=== PATIENT | female | born 1930 | race Caucasian/White ===

== ENCOUNTER 2017-11-07 07:33 | Emergency (ER) | payer MEDICARE, OTHER ==
--- NOTE | 2017-11-07 08:35 | EDM.PDOC ---
ED HPI GENERAL MEDICAL PROBLEM - General Chief Complaint: Skin Complaint Stated Complaint: PAIN FROM SHINGLES Time Seen by Provider: 11/07/17 07:54 Source of Information: Reports: Patient History Limitations: Reports: No Limitations - History of Present Illness INITIAL COMMENTS - FREE TEXT/NARRATIVE: The patient presents with shingles. This has been an ongoing problem since August. She has been on a few things for pain and she is not sure if she was on an antiviral. It appears to her it is getting worse. She needs something for the pain. She has no fever, chills, cough, abdominal pain, nausea or vomiting. She has a rash and pain to the left mid back to left chest. Onset: Gradual Duration: Week(s): (Since August) Location: Reports: Chest, Back Quality: Reports: Burning Severity: Moderate Improves with: Reports: None Worsens with: Reports: None Associated Symptoms: Reports: No Other Symptoms Left Shoulder Pain Score (Numeric/FACES): 8 - Related Data Allergies Allergy/AdvReac Type Severity Reaction Status Date / Time shellfish derived Allergy Swelling Verified 11/07/17 07:45 Home Meds: Home Meds Aspirin [Halfprin] 81 mg PO DAILY 11/07/17 [History] Hydrocodone/Acetaminophen [Hydrocodon-Acetaminophen 5-325] 1 each PO Q6HR PRN # 20 tablet 11/07/17 [Rx] Metoprolol Succinate [Toprol XL] 12.5 mg PO DAILY 11/07/17 [History] Naproxen Sodium [Aleve] 220 mg PO DAILY 11/07/17 [History] valACYclovir [Valtrex] 1,000 mg PO TID #21 tab 11/07/17 [Rx] Past Medical History HEENT History: Reports: Impaired Vision Other HEENT History: wears corrective lenses Cardiovascular History: Reports: Hypertension [employer] History: Reports: Social & Family History - Tobacco Use Smoking Status *Q: Never Smoker Second Hand Smoke Exposure: No - Caffeine Use Caffeine Use: Reports: Coffee - Recreational Drug Use Recreational Drug Use: No ED ROS GENERAL - Review of Systems Review Of Systems: See Below Constitutional: Reports: No Symptoms HEENT: Reports: No Symptoms Respiratory: Reports: No Symptoms Cardiovascular: Reports: Chest Pain Endocrine: Reports: No Symptoms GI/Abdominal: Reports: No Symptoms : Reports: No Symptoms Musculoskeletal: Reports: Back Pain ED EXAM, SKIN/RASH Exam: See Below Exam Limited By: No Limitations General Appearance: Alert, No Apparent Distress Ears: Normal External Exam Nose: Normal Inspection Head: Atraumatic, Normocephalic Neck: Normal Inspection Respiratory/Chest: No Respiratory Distress, Lungs Clear, Normal Breath Sounds Cardiovascular: Regular Rate, Rhythm, No Edema, No Murmur GI/Abdominal: Soft, Non-Tender, No Organomegaly, No Mass Back Exam: Other (Darker collered skin to the mid left back with a few lesions and more lesions to the left chest) Neurological: Alert, Oriented, No Motor/Sensory Deficits Course - Vital Signs Last Recorded V/S: Last Vital Signs Temp 98.7 F 11/07/17 07:40 Pulse 87 11/07/17 07:40 Resp 19 11/07/17 07:40 BP 159/89 H 11/07/17 07:40 Pulse Ox 97 11/07/17 07:40 - Re-Assessments/Exams Free Text/Narrative Re-Assessment/Exam: 11/07/17 08:33 I will get her a prescription for valacyclivor, neurontin and hydrocodone. Departure - Departure Time of Disposition: 08:35 Disposition: Home, Self-Care 01 Condition: Good Clinical Impression: Shingles Qualifiers: Herpes zoster complications: without complications Qualified Code(s): B02.9 - Zoster without complications - Discharge Information *PRESCRIPTION DRUG MONITORING PROGRAM REVIEWED*: No *COPY OF PRESCRIPTION DRUG MONITORING REPORT IN PATIENT PAULETTE: No Prescriptions: Hydrocodone/Acetaminophen [Hydrocodon-Acetaminophen 5-325] 1 each PO Q6HR PRN # 20 tablet PRN Reason: Pain valACYclovir [Valtrex] 1,000 mg PO TID #21 tab Referrals: Dominic Cano MD [Primary Care Provider] - Additional Instructions: Take the valacyclivor 3 times per day. Take the neurontin 1 pill on day 1 and then 1 pill 2 times per day on day 2. Continue that dose. This may take awhile to work. You can take a hydrocodone for more pain 1 pill every 6 hours as needed for pain. Follow up with Dr Vazquez. He may need to adjust the doses of some meds. Please return if you are worse.
== END 2017-11-07 08:55 | disposition home or self-care (01) ==
LOC: JD.ED 07:33
DX: B02.9 Zoster without complications (principal); I10 Essential (primary) hypertension; Z91.013 Allergy to seafood
CPT/HCPCS: 99283

== ENCOUNTER 2018-05-27 20:29 | Emergency (ER) | payer MEDICARE, OTHER ==
--- NOTE | 2018-05-27 21:07 | EDM.PDOC ---
ED HPI GENERAL MEDICAL PROBLEM - General Chief Complaint: Lower Extremity Injury/Pain Stated Complaint: PAIN AND SWELLING IN RIGHT LEG Time Seen by Provider: 05/27/18 20:48 Source of Information: Reports: Patient, RN Notes Reviewed - History of Present Illness INITIAL COMMENTS - FREE TEXT/NARRATIVE: 88-year-old lady had sudden onset of leg pain standing still this afternoon about 6 hours ago. She states it felt like a hard crap that lasted for a while and she now continues to have pain of the leg with any type of motion or walking. There is a mild ache at rest not super bothersome. She notices now this evening that the back of her leg is swollen. She and her family are appropriately worried about blood clots. NonChest pain or difficulty breathing. No fall or injury. Left Lower Leg Pain Score (Numeric/FACES): 7 - Related Data Allergies Allergy/AdvReac Type Severity Reaction Status Date / Time shellfish derived Allergy Swelling Verified 05/27/18 20:40 Home Meds: Home Meds Metoprolol Succinate [Toprol XL] 12.5 mg PO DAILY 11/07/17 [History] Past Medical History HEENT History: Reports: Impaired Vision Other HEENT History: wears corrective lenses Cardiovascular History: Reports: Hypertension [employer] History: Reports: Social & Family History - Tobacco Use Smoking Status *Q: Never Smoker - Caffeine Use Caffeine Use: Reports: Coffee - Recreational Drug Use Recreational Drug Use: No Review of Systems - Review of Systems Review Of Systems: See Below Constitutional: Denies: Chills, Fever Mouth/Throat: Reports: No Symptoms Respiratory: Denies: Shortness of Breath Cardiovascular: Denies: Chest Pain GI/Abdominal: Denies: Abdominal Pain, Nausea, Vomiting Musculoskeletal: Reports: Leg Pain Skin: Denies: Rash, Erythema Neurological: Denies: Numbness, Tingling ED EXAM, GENERAL - Physical Exam Exam: See Below General Appearance: Alert, No Apparent Distress Throat/Mouth: Normal Inspection Head: Atraumatic. No: Facial Swelling Neck: Supple, Full Range of Motion Respiratory/Chest: No Respiratory Distress, Lungs Clear, Normal Breath Sounds, No Accessory Muscle Use Cardiovascular: Regular Rate, Rhythm Extremities: Other (There is tenderness R superior and mid calf, remainder of leg nontender there is mild swelling of the right upper and mid leg as well, no lower foot or ankle edema, no warmth or erythema of the leg, upper leg nontender ). No: Increased Warmth, Redness Course - Vital Signs Last Recorded V/S: Last Vital Signs Temp 96.8 F 05/27/18 20:38 Pulse 65 05/27/18 20:38 Resp 16 05/27/18 20:38 BP 185/91 H 05/27/18 20:38 Pulse Ox 95 05/27/18 20:38 - Orders/Labs/Meds Orders: Active Orders 24 hr Category Date Time Status VL Duplex Lwr Ext Veins Ltd Rt [US] Stat Exams 05/27/18 20:57 Taken Departure - Departure Time of Disposition: 22:44 Disposition: Home, Self-Care 01 Condition: Fair Clinical Impression: Leg pain, right - Discharge Information Referrals: Dominic Cano MD [Primary Care Provider] - Forms: ED Department Discharge Additional Instructions: Rest and elevate leg is much as possible, Tylenol every 6-8 hours if needed for severe discomfort, follow-up clinic if not much better within 3-5 days as expected, return to ED as needed if symptoms worsening in any way. - My Orders Last 24 Hours: My Active Orders 05/27/18 20:57 VL Duplex Lwr Ext Veins Ltd Rt [US] Stat - Assessment/Plan Last 24 Hours: My Active Orders 05/27/18 20:57 VL Duplex Lwr Ext Veins Ltd Rt [US] Stat
--- NOTE | 2018-05-28 08:20 | US ---
Right lower extremity deep venous ultrasound: Duplex and color flow imaging was obtained of the right common femoral, proximal greater saphenous, superficial femoral, popliteal, posterior tibial and peroneal veins. Left common femoral vein was also evaluated. Comparison: No prior venous exam. Normal phasic flow, augmentation and compression are seen. Small hypoechoic area js identified described as area of pain within the upper right calf measuring 1.1 x 1.7 x 0.4 cm. This most likely represents either a small lymph node or small hematoma. Impression: 1. Small abnormality as described above within the superficial soft tissues of the right calf. 2. No evidence of venous thrombosis within the right lower extremity or left common femoral vein. Diagnostic code #2 I agree with preliminary report from [facility], finalized on 05/27/18, 11:34 PM Central Time
== END 2018-05-27 22:55 | disposition home or self-care (01) ==
LOC: JD.ED 20:29
DX: M79.604 Pain in right leg (principal); I10 Essential (primary) hypertension; Z91.013 Allergy to seafood; Z79.899 Other long term (current) drug therapy
CPT/HCPCS: 93971-26-RT; 93971-RT; 99283-25

== ENCOUNTER 2018-07-11 07:50 | Inpatient (IN) | payer MEDICARE, OTHER ==
[2018-07-11] MEDS ORDERED: Albuterol/Ipratropium 3.0-0.5 MG/3 ML Neb Soln NEB ONE (08:41)
--- NOTE | 2018-07-11 08:58 | EDM.PDOC ---
<Michael Avila - Last Filed: 07/11/18 08:51> ED HPI GENERAL MEDICAL PROBLEM - General Chief Complaint: Respiratory Problem Stated Complaint: COUGH Time Seen by Provider: 07/11/18 08:06 Source of Information: Reports: Patient History Limitations: Reports: No Limitations - History of Present Illness INITIAL COMMENTS - FREE TEXT/NARRATIVE: Precious Deleon is a 88 year old female who presents to the ED for a cough. She states that she has been sick for awhile but developed a productive cough of white phlegm four days ago. The cough kept her up all night last night. She states nothing makes the cough worse but warm water makes it better. She has also felt feverish at home but has not actually taken her temp at home. She also states that she has been having chill, but she has been having these chills since last August when she was diagnosed with Shingles. She sleeps in a chair at home so she isn't sure if laying makes her cough worse. She does admit to a decrease in her appetite but her fluid levels are good. Her is on oxygen at home because he has been diagnosed with pneumonia a few days ago. She is up to date on her Influenza and Pneumonia vaccines. She does not have any history of cardiac or respiratory disease. She has never smoked. Left Chest Pain Score (Numeric/FACES): 6 - Related Data Allergies Allergy/AdvReac Type Severity Reaction Status Date / Time shellfish derived Allergy Swelling Verified 07/11/18 08:19 Home Meds: Home Meds Metoprolol Succinate [Toprol XL] 25 mg PO DAILY 11/07/17 [History] Past Medical History HEENT History: Reports: Impaired Vision Other HEENT History: wears corrective lenses Cardiovascular History: Reports: Hypertension [employer] History: Reports: Social & Family History - Tobacco Use Smoking Status *Q: Never Smoker - Caffeine Use Caffeine Use: Reports: Coffee - Recreational Drug Use Recreational Drug Use: No ED ROS GENERAL - Review of Systems Review Of Systems: ROS reveals no pertinent complaints other than HPI. ED EXAM, GENERAL - Physical Exam Exam Limited By: No Limitations General Appearance: Alert, WD/WN, No Apparent Distress Eye Exam: Bilateral Eye: Normal Inspection Ears: Normal External Exam, Normal Canal, Hearing Grossly Normal, Normal TMs Nose: Normal Inspection, Normal Mucosa, No Blood Throat/Mouth: Normal Inspection, Normal Lips, Normal Teeth, Normal Gums, Normal Oropharynx, Normal Voice, No Airway Compromise Head: Atraumatic, Normocephalic Neck: Normal Inspection, Supple, Non-Tender, Full Range of Motion Respiratory/Chest: No Respiratory Distress, No Accessory Muscle Use, Crackles, Wheezing Cardiovascular: Normal Peripheral Pulses, Regular Rate, Rhythm, No Edema, No Gallop, No JVD, No Murmur, No Rub Peripheral Pulses: 2+: Radial (L), Radial (R) GI/Abdominal: Normal Bowel Sounds, Soft, Non-Tender, No Organomegaly, No Distention, No Abnormal Bruit, No Mass Neurological: Alert, Oriented, Normal Cognition, Normal Gait, No Motor/Sensory Deficits Psychiatric: Normal Affect, Normal Mood Skin Exam: Warm, Dry, Intact, Normal Color, No Rash Course - Vital Signs Last Recorded V/S: Last Vital Signs Temp 99.0 F 07/11/18 08:11 Pulse 94 07/11/18 08:11 Resp 20 07/11/18 08:11 BP 140/77 07/11/18 08:11 Pulse Ox 94 L 07/11/18 08:41 - Orders/Labs/Meds Orders: Active Orders 24 hr Category Date Time Status Cardiac Monitoring [RC] . DIRECTED Care 07/11/18 08:41 Active Oxygen Therapy [RC] ASDIRECTED Care 07/11/18 08:26 Active Peripheral IV Care [RC] . DIRECTED Care 07/11/18 09:47 Ordered RT Aerosol Therapy [RC] ASDIRECTED Care 07/11/18 08:41 Active Chest 2V [CR] Stat Exams 07/11/18 08:41 Taken CULTURE BLOOD [BC] Stat Lab 07/11/18 09:40 Ordered CULTURE BLOOD [BC] Stat Lab 07/11/18 09:40 Ordered INFLUENZA A+B AG SCREEN [RM] Stat Lab 07/11/18 09:29 Received LACTIC ACID [CHEM] Stat Lab 07/11/18 09:40 Ordered Sodium Chloride 0.9% [Saline Flush] Med 07/11/18 09:47 Ordered 10 ml FLUSH ASDIRECTED PRN cefTRIAXone [Rocephin] 2 gm Med 07/11/18 09:40 Active Sodium Chloride 0.9% [Normal Saline] 100 ml IV ONETIME Blood Culture x2 Reflex Set [OM.PC] Stat Oth 07/11/18 09:39 Ordered Peripheral IV Insertion Adult [OM.PC] Routine Oth 07/11/18 09:47 Ordered Medication Orders Ceftriaxone Sodium 2 gm/ (Sodium Chloride) 100 mls @ 200 mls/hr IV ONETIME ONE Stop: 07/11/18 10:09 Sodium Chloride (Saline Flush) 10 ml FLUSH ASDIRECTED PRN PRN Reason: Keep Vein Open Labs: Laboratory Tests 07/11/18 07/11/18 Range/Units 08:55 08:55 WBC 8.08 (3.98-10.04) K/mm3 RBC 4.21 (3.98-5.22) M/mm3 Hgb 13.5 (11.2-15.7) gm/L Hct 40.1 (34.1-44.9) % MCV 95.2 H (79.4-94.8) fl MCH 32.1 (25.6-32.2) pg MCHC 33.7 (32.2-35.5) g/dl RDW Std Deviation 41.7 (36.4-46.3) fL Plt Count 174 L (182-369) K/mm3 MPV 9.0 L (9.4-12.3) fl Neut % (Auto) 86.9 H (34.0-71.1) % Lymph % (Auto) 4.0 L (19.3-51.7) % [place] % (Auto) 8.8 (4.7-12.5) % Eos % (Auto) 0 L (0.7-5.8) Baso % (Auto) 0.1 (0.1-1.2) % Neut # (Auto) 7.02 H (1.56-6.13) K/mm3 Lymph # (Auto) 0.32 L (1.18-3.74) K/mm3 [place] # (Auto) 0.71 H (0.24-0.36) K/mm3 Eos # (Auto) 0.00 L (0.04-0.36) K/mm3 Baso # (Auto) 0.01 (0.01-0.08) K/mm3 Manual Slide Review Abnormal smear Sodium 136 (136-145) mEq/L Potassium 3.3 L (3.5-5.1) mEq/L Chloride 98 (98-107) mEq/L Carbon Dioxide 30 (21-32) mEq/L Anion Gap 11.3 (5-15) BUN 16 (7-18) mg/dL Creatinine 0.9 (0.55-1.02) mg/dL Est Cr Clr Drug Dosing 36.43 mL/min Estimated GFR (MDRD) 59 (>60) mL/min BUN/Creatinine Ratio 17.8 (14-18) Glucose 171 H (83-115) mg/dL Calcium 8.8 (8.5-10.1) mg/dL Total Bilirubin 1.4 H (0.2-1.0) mg/dL AST 48 H (15-37) U/L ALT 37 (14-59) U/L Alkaline Phosphatase 88 (46-116) U/L Total Protein 6.5 (6.4-8.2) g/dl Albumin 2.9 L (3.4-5.0) g/dl Globulin 3.6 gm/dL Albumin/Globulin Ratio 0.8 L (1-2) Meds: Medications Generic Name Dose Route Start Last Admin Trade Name Freq PRN Reason Stop Dose Admin Ceftriaxone Sodium 2 gm/ 100 mls @ 200 mls/hr 07/11/18 09:40 Sodium Chloride IV 07/11/18 10:09 ONETIME ONE Sodium Chloride 10 ml 07/11/18 09:47 Saline Flush FLUSH ASDIRECTED PRN Keep Vein Open Discontinued Medications Generic Name Dose Route Start Last Admin Trade Name Freq PRN Reason Stop Dose Admin Albuterol/Ipratropium 3 ml 07/11/18 08:41 07/11/18 08:59 Duoneb 3.0-0.5 Mg/3 Ml NEB 07/11/18 08:42 3 ml ONETIME ONE Administration Departure - Departure Disposition: Admitted As Inpatient 67 Clinical Impression: Hypoxia Pneumonia Qualifiers: Pneumonia type: due to unspecified organism Laterality: right Lung location: upper lobe of lung Qualified Code(s): J18.1 - Lobar pneumonia, unspecified organism - Discharge Information Referrals: Dominic Cano MD [Primary Care Provider] - Forms: ED Department Discharge - My Orders Last 24 Hours: My Active Orders 07/11/18 08:26 Oxygen Therapy [RC] ASDIRECTED 07/11/18 08:41 Cardiac Monitoring [RC] . DIRECTED RT Aerosol Therapy [RC] ASDIRECTED Chest 2V [CR] Stat 07/11/18 09:29 INFLUENZA A+B AG SCREEN [RM] Stat 07/11/18 09:39 Blood Culture x2 Reflex Set [OM.PC] Stat 07/11/18 09:40 CULTURE BLOOD [BC] Stat CULTURE BLOOD [BC] Stat LACTIC ACID [CHEM] Stat cefTRIAXone [Rocephin] 2 gm Sodium Chloride 0.9% [Normal Saline] 100 ml IV ONETIME 07/11/18 09:47 Peripheral IV Care [RC] . DIRECTED Sodium Chloride 0.9% [Saline Flush] 10 ml FLUSH ASDIRECTED PRN Peripheral IV Insertion Adult [OM.PC] Routine - Assessment/Plan Last 24 Hours: My Active Orders 07/11/18 08:26 Oxygen Therapy [RC] ASDIRECTED 07/11/18 08:41 Cardiac Monitoring [RC] . DIRECTED RT Aerosol Therapy [RC] ASDIRECTED Chest 2V [CR] Stat 07/11/18 09:29 INFLUENZA A+B AG SCREEN [RM] Stat 07/11/18 09:39 Blood Culture x2 Reflex Set [OM.PC] Stat 07/11/18 09:40 CULTURE BLOOD [BC] Stat CULTURE BLOOD [BC] Stat LACTIC ACID [CHEM] Stat cefTRIAXone [Rocephin] 2 gm Sodium Chloride 0.9% [Normal Saline] 100 ml IV ONETIME 07/11/18 09:47 Peripheral IV Care [RC] . DIRECTED Sodium Chloride 0.9% [Saline Flush] 10 ml FLUSH ASDIRECTED PRN Peripheral IV Insertion Adult [OM.PC] Routine <Cesar Bejarano A - Last Filed: 07/11/18 10:01> ED HPI GENERAL MEDICAL PROBLEM - History of Present Illness Onset: Gradual Duration: Day(s): (3) Severity: Moderate Improves with: Reports: None Worsens with: Reports: None Associated Symptoms: Reports: Cough, cough w sputum. Denies: Chest Pain, Fever/ Chills, Headaches, Nausea/Vomiting, Shortness of Breath ED ROS GENERAL - Review of Systems Review Of Systems: See Below ED EXAM, GENERAL - Physical Exam Exam: See Below Course - Re-Assessments/Exams Free Text/Narrative Re-Assessment/Exam: 07/11/18 09:48 I examined the patient myself and I agree with Michael's assessment and plan. The patient was hypoxic when she came in. She was put on oxygen and given a breathing treatment. Her CXR shows a pneumonia in the right upper and right lower lobes. Here CBC was normal. Her K was a little low at 3.3. Her glucose is 171. Her total bili was elevated at 1.4. Her AST was slightly elevated at 48. I have ordered an IV saline lock, rocephin 2 grams IV, blood cultures and lactic acid. 07/11/18 09:56 I feel she needs to be admitted. I called Dr Emery and he agreed to the admission. Departure - Departure Time of Disposition: 10:00 Condition: Fair
[2018-07-11] MEDS ORDERED: cefTRIAXone 2 GM in Sodium Chloride 0.9% 100 ML IV ONE (09:40)
[2018-07-11] MEDS ORDERED: Sodium Chloride 0.9% 10 ML Syringe FLUSH PRN (09:47)
--- NOTE | 2018-07-11 09:51 | CR ---
Chest: Two views of the chest were obtained. Comparison: No prior chest x-ray is available. Increased density is noted within the right upper and right lower lung. Left lung shows slight increased density within the left base most likely due to scarring. Heart is enlarged. Tortuous thoracic aorta is seen. Bony structures show mild scoliosis within the spine. Impression: 1. Areas of increased density within the right upper and right lower lung most likely representing pneumonia. Please correlate that patient has infectious symptoms. 2. Cardiomegaly and other incidental findings. Diagnostic code #3
[2018-07-11] MEDS ORDERED: Albuterol 0.083% 2.5 MG/3 ML Neb Soln NEB PRN (13:18)
[2018-07-11] MEDS ORDERED: Potassium Chloride 20 MEQ Tab.ER PO ONE ×3 (13:29→15:15)
--- NOTE | 2018-07-11 13:37 | PCM.HP ---
H&P History of Present Illness - General Date of Service: 07/11/18 Admit Problem/Dx: Admission Diagnosis/Problem Admission Diagnosis/Problem Pneumonia Source of Information: Patient, Family - History of Present Illness Initial Comments - Free Text/Narative: 88-year-old female with three-day history of cough present to the emergency room with worsening symptoms overnight. She states that last night she had a productive cough of clear sputum that worsened. She states the cough likely started Monday, but it was not severe until last night. She denies any shortness of breath, chest pain, orthopnea, PND, or dyspnea on exertion. She does have some slight dizziness. Patient states that nothing makes her cough worse. She does complain of some chills. In the emergency room her initial oxygenation was 84%. Chest x-ray was performed which showed a right upper and lower lobe pneumonia. It was determined patient needed hospitalization for her pneumonia and hypoxemia. She had blood cultures, Rocephin 2 g, and lab work done. White count was normal, lactic acid was normal. Patient also developed shingles last August. 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 She has tried multiple treatments including lidocaine patches without benefit. 2 weeks ago she was seen by her primary care provider and her heart rate was 110. She states she has been on metoprolol for years 12.5 mg twice a day for racing heart. He increased the dose to 25 mg twice a day and she had significant improvement. She is currently wearing a Holter monitor that was put on yesterday morning and is due to be removed tomorrow morning. Left Chest Pain Score (Numeric/FACES): 6 - Related Data Allergies/Adverse Reactions: Allergies Allergy/AdvReac Type Severity Reaction Status Date / Time shellfish derived Allergy Swelling Verified 07/11/18 08:19 Home Medications: Home Meds Metoprolol Succinate [Toprol XL] 25 mg PO BID 11/07/17 [History] Past Medical History HEENT History: Reports: Impaired Vision, Other (See Below) Other HEENT History: wears corrective lenses; tooth pulled Cardiovascular History: Reports: Other (See Below) Other Cardiovascular History: high heart rate LAP WINDER History: Reports: - Infectious Disease History Infectious Disease History: Reports: Shingles - Past Surgical History HEENT Surgical History: Reports: Tonsillectomy Cardiovascular Surgical History: Reports: None Social & Family History - Family History Family Medical History: Noncontributory - Tobacco Use Smoking Status *Q: Never Smoker - Caffeine Use Caffeine Use: Reports: Coffee - Recreational Drug Use Recreational Drug Use: No H&P Review of Systems - Review of Systems: Review Of Systems: See Below General: Reports: Chills. Denies: Fever, Diaphoresis HEENT: Reports: No Symptoms. Denies: Headaches, Visual Changes Pulmonary: Reports: Cough, Sputum. Denies: Shortness of Breath, Wheezing, Pleuritic Chest Pain, Hemoptysis Cardiovascular: Reports: Lightheadedness. Denies: Chest Pain, Palpitations, Dyspnea on Exertion, Syncope Gastrointestinal: Reports: No Symptoms, Abdominal Pain, Anorexia, Constipation, Diarrhea Genitourinary: Reports: Incontinence. Denies: Dysuria, Frequency Musculoskeletal: Reports: No Symptoms. Denies: Neck Pain, Back Pain Skin: Reports: Other Psychiatric: Reports: No Symptoms. Denies: Confusion, Depression Neurological: Reports: Other. Denies: Dizziness, Headache Hematologic/Lymphatic: Reports: No Symptoms Immunologic: Reports: No Symptoms Exam - Exam Exam: See Below - Vital Signs Vital Signs: Last Vital Signs Temp 98.1 F 07/11/18 11:46 Pulse 75 07/11/18 11:46 Resp 20 07/11/18 11:46 BP 148/67 H 07/11/18 11:46 Pulse Ox 95 07/11/18 11:46 Weight: 118 lb 11.2 oz - Exam HEENT: Conjunctiva Clear, Mucosa Moist & Vick[place], Posterior Pharynx Clear Lungs: Normal Respiratory Effort, Rhonchi (Right upper lower lobe), Wheezing ( Bilateral apices) Cardiovascular: Regular Rate, Regular Rhythm GI/Abdominal Exam: Normal Bowel Sounds, Soft, Non-Tender, No Distention, No Abnormal Bruit Back Exam: Normal Inspection, Full Range of Motion Extremities: Normal Inspection, Normal Range of Motion, Non-Tender, No Pedal Edema, Normal Capillary Refill Skin: Warm, Dry, Intact Neuro Extensive - Mental Status: Alert, Oriented x3, Normal Mood/Affect Neuro Extensive - Motor, Sensory, Reflexes: CN II-XII Intact Psychiatric: Alert, Normal Affect, Normal Mood - Patient Data Lab Results Last 24 hrs: Laboratory Results - last 24 hr 07/11/18 07/11/1807/11/19 Range/Units 08:55 08:55 10:05 WBC 8.08 (3.98-10.04) K/mm3 RBC 4.21 (3.98-5.22) M/mm3 Hgb 13.5 (11.2-15.7) gm/L Hct 40.1 (34.1-44.9) % MCV 95.2 H (79.4-94.8) fl MCH 32.1 (25.6-32.2) pg MCHC 33.7 (32.2-35.5) g/dl RDW Std Deviation 41.7 (36.4-46.3) fL Plt Count 174 L (182-369) K/mm3 MPV 9.0 L (9.4-12.3) fl Neut % (Auto) 86.9 H (34.0-71.1) % Lymph % (Auto) 4.0 L (19.3-51.7) % Power % (Auto) 8.8 (4.7-12.5) % Eos % (Auto) 0 L (0.7-5.8) Baso % (Auto) 0.1 (0.1-1.2) % Neut # (Auto) 7.02 H (1.56-6.13) K/mm3 Lymph # (Auto) 0.32 L (1.18-3.74) K/mm3 Power # (Auto) 0.71 H (0.24-0.36) K/mm3 Eos # (Auto) 0.00 L (0.04-0.36) K/mm3 Baso # (Auto) 0.01 (0.01-0.08) K/mm3 Manual Slide Review Abnormal smear Sodium 136 (136-145) mEq/L Potassium 3.3 L (3.5-5.1) mEq/L Chloride 98 (98-107) mEq/L Carbon Dioxide 30 (21-32) mEq/L Anion Gap 11.3 (5-15) BUN 16 (7-18) mg/dL Creatinine 0.9 (0.55-1.02) mg/dL Est Cr Clr Drug Dosing 36.43 mL/min Estimated GFR (MDRD) 59 (>60) mL/min BUN/Creatinine Ratio 17.8 (14-18) Glucose 171 H (83-115) mg/dL Lactic Acid 1.2 (0.4-2.0) mmol/L Calcium 8.8 (8.5-10.1) mg/dL Total Bilirubin 1.4 H (0.2-1.0) mg/dL AST 48 H (15-37) U/L ALT 37 (14-59) U/L Alkaline Phosphatase 88 (46-116) U/L Total Protein 6.5 (6.4-8.2) g/dl Albumin 2.9 L (3.4-5.0) g/dl Globulin 3.6 gm/dL Albumin/Globulin Ratio 0.8 L (1-2) Result Diagrams: 07/11/18 08:55 07/11/18 08:55 Petr Results Last 24 hrs: Microbiology 07/11/18 09:29 Influenza Type A Antigen Screen - Final Nasopharyngeal Swab NEGATIVE INFLUENZA A VIRUS AG Influenza Type B Antigen Screen - Final NEGATIVE INFLUENZA B VIRUS AG - Problem List (1) Postherpetic neuralgia SNOMED Code(s): 2080299 ICD Code: B02.29 - OTHER POSTHERPETIC NERVOUS SYSTEM INVOLVEMENT Status: Acute Current Visit: Yes (2) Hypoxia SNOMED Code(s): 944339234 ICD Code: R09.02 - HYPOXEMIA Status: Acute Current Visit: Yes (3) Pneumonia SNOMED Code(s): 899768713 ICD Code: J18.9 - PNEUMONIA, UNSPECIFIED ORGANISM Status: Acute Current Visit: Yes Qualifiers: Pneumonia type: due to unspecified organism Laterality: right Lung location: upper lobe of lung Qualified Code(s): J18.1 - Lobar pneumonia, unspecified organism (4) Hypokalemia SNOMED Code(s): 59709137 ICD Code: E87.6 - HYPOKALEMIA Status: Acute Current Visit: Yes Problem List Initiated/Reviewed/Updated: Yes Orders Last 24hrs: Active Orders 24 hr Category Date Time Status Patient Status [ADT] Routine ADT 07/11/18 11:12 Active Antiembolic Devices [RC] PER UNIT ROUTINE Care 07/11/18 13:20 Active Bedrest Bathroom Privileges [RC] ASDIRECTED Care 07/11/18 13:18 Active Cardiac Monitoring [RC] . DIRECTED Care 07/11/18 08:41 Active Oxygen Therapy [RC] ASDIRECTED Care 07/11/18 08:26 Active Oxygen Therapy [RC] PRN Care 07/11/18 13:18 Active Peripheral IV Care [RC] . DIRECTED Care 07/11/18 09:47 Active RT Aerosol Therapy [RC] ASDIRECTED Care 07/11/18 08:41 Active RT Aerosol Therapy [RC] ASDIRECTED Care 07/11/18 13:20 Active Up With Assistance [RC] ASDIRECTED Care 07/11/18 13:18 Active VTE/DVT Education [RC] PER UNIT ROUTINE Care 07/11/18 13:18 Active Vital Signs [RC] Q4H Care 07/11/18 13:18 Active Respiratory Care Assess and Treatment [CONS] Routine Cons 07/11/18 13:18 Active Regular Diet [DIET] Diet 07/11/18 Dinner Active C-REACTIVE PROTEIN [CHEM] AM Lab 07/12/18 05:11 Ordered CBC WITH AUTO DIFF [HEME] AM Lab 07/12/18 05:11 Ordered COMPREHENSIVE METABOLIC PN,CMP [CHEM] AM Lab 07/12/18 05:11 Ordered CULTURE BLOOD [BC] Stat Lab 07/11/18 09:55 Received CULTURE BLOOD [BC] Stat Lab 07/11/18 10:05 Received CULTURE SPUTUM + SMEAR [RM] Stat Lab 07/11/18 13:18 Ordered MAGNESIUM [CHEM] AM Lab 07/12/18 05:11 Ordered PHOSPHORUS [CHEM] AM Lab 07/12/18 05:11 Ordered Acetaminophen [Tylenol] Med 07/11/18 13:18 Ordered 650 mg PO Q4H PRN Albuterol [Proventil Neb Soln] Med 07/11/18 13:18 Ordered 2.5 mg NEB Q2H PRN Albuterol/Ipratropium [DuoNeb 3.0-0.5 MG/3 ML] Med 07/11/18 13:18 Ordered 3 ml NEB Q4H PRN Azithromycin [Zithromax] Med 07/12/18 09:00 Ordered 250 mg PO DAILY Azithromycin [Zithromax] 500 mg Med 07/11/18 13:18 Ordered Sodium Chloride 0.9% [Normal Saline] 250 ml IV ONETIME Metoprolol Succinate [Toprol XL] Med 07/11/18 21:00 Ordered 25 mg PO BID Potassium Chloride [Klor-Con M20] Med 07/11/18 13:29 Once 20 meq PO ONETIME ONE Sodium Chloride 0.9% [Saline Flush] Med 07/11/18 09:47 Active 10 ml FLUSH ASDIRECTED PRN Blood Culture x2 Reflex Set [OM.PC] Stat Oth 07/11/18 09:39 Ordered Peripheral IV Insertion Adult [OM.PC] Routine Oth 07/11/18 09:47 Ordered Sequential Compression Device [OM.PC] Per Unit Routine Oth 07/11/18 13:19 Ordered Resuscitation Status Routine Resus Stat 07/11/18 13:18 Ordered Medication Orders Acetaminophen (Tylenol) 650 mg PO Q4H PRN PRN Reason: Pain (Mild 1-3)/fever Albuterol (Proventil Neb Soln) 2.5 mg NEB Q2H PRN PRN Reason: Shortness Of Breath/wheezing Albuterol/Ipratropium (Duoneb 3.0-0.5 Mg/3 Ml) 3 ml NEB Q4H PRN PRN Reason: Shortness Of Breath/wheezing Azithromycin (Zithromax) 250 mg PO DAILY HERMILO Stop: 07/15/18 09:01 Azithromycin 500 mg/ Sodium (Chloride) 250 mls @ 250 mls/hr IV ONETIME ONE Stop: 07/11/18 14:17 Metoprolol Succinate (Toprol Xl) 25 mg PO BID HERMILO Sodium Chloride (Saline Flush) 10 ml FLUSH ASDIRECTED PRN PRN Reason: Keep Vein Open Last Admin: 07/11/18 10:12 Dose: 10 ml Assessment/Plan Comment:: Right upper and lower lobe pneumonia * Admit to [facility] on telemetry * Patient given Rocephin 2 g IV in the emergency room. * Start azithromycin for coverage of community-acquired pneumonia * RT consult. * DuoNeb every 4 hours when necessary and albuterol nebulizer every 2 hours when necessary shortness of breath, cough, wheezing * Blood cultures done in the ER * Sputum cultures ordered * Lactic acid and white count normal * Repeat CBC and CMP in the morning Hypoxemia * Secondary to pneumonia * FiO2 to maintain oxygen above 90% Hypokalemia * Potassium chloride 20 mEq by mouth 1 * Recheck CMP in the morning History of tachycardia * Admit to telemetry * Continue metoprolol tartrate 25 mg twice a day * Finish her Holter monitor today. Postherpetic neuralgia * Monitor and treat symptomatically as needed CBC, CMP, lactic acid, mag, C-reactive protein, phos in a.m. Length of stay likely 3 days CODE STATUS: DNR/DNI. Discussed with patient and daughter
[2018-07-11] MEDS ORDERED: Azithromycin 500 MG in Sodium Chloride 0.9% 250 ML IV ONE (14:00)
[2018-07-11] MEDS: Albuterol/Ipratropium 3.0-0.5 MG/3 ML Neb Soln NEB PRN (20:22)
[2018-07-11] MEDS: Metoprolol Succinate 25 MG Tab.ER PO SCH (20:35)
[2018-07-11] MEDS: Acetaminophen 325 MG Tab PO PRN (20:37)
[2018-07-11] MEDS: guaiFENesin 600 MG Tab.ER PO SCH (22:43)
[2018-07-12] MEDS: cefTRIAXone 1 GM in Sodium Chloride 0.9% 100 ML IV SCH (09:03)
[2018-07-12] MEDS: guaiFENesin 600 MG Tab.ER PO SCH ×2 (09:03→20:11)
[2018-07-12] MEDS: Metoprolol Succinate 25 MG Tab.ER PO SCH ×2 (09:04→20:11)
[2018-07-12] MEDS: Acetaminophen 325 MG Tab PO PRN ×2 (09:04→20:12)
[2018-07-12] MEDS ORDERED: cefTRIAXone 1 GM Vial IVPUSH SCH (10:00)
[2018-07-12] MEDS: Azithromycin 250 MG Tab PO SCH (13:45)
--- NOTE | 2018-07-12 14:11 | PCM.PN ---
- General Info Date of Service: 07/12/18 Admission Dx/Problem (Free Text): Admission Diagnosis/Problem Admission Diagnosis/Problem Pneumonia Subjective Update: Patient had uneventful night. She continues on 2 L of O2 via nasal cannula. She was afebrile. She has no pain and no specific complaints other than coughing. Functional Status: Reports: Pain Controlled - Review of Systems General: Reports: No Symptoms HEENT: Reports: No Symptoms Pulmonary: Reports: Cough. Denies: Shortness of Breath, Hemoptysis Cardiovascular: Reports: No Symptoms. Denies: Chest Pain, Palpitations Gastrointestinal: Reports: No Symptoms. Denies: Abdominal Pain, Constipation - Patient Data Vitals - Most Recent: Last Vital Signs Temp 97.9 F 07/12/18 07:36 Pulse 88 07/12/18 09:04 Resp 22 H 07/12/18 07:36 BP 108/77 07/12/18 09:04 Pulse Ox 94 L 07/12/18 09:04 Weight - Most Recent: 118 lb 5 oz I&O - Last 24 Hours: Intake & Output 07/11/18 07/12/18 07/12/18 22:59 06:59 14:59 Intake Total 1300 800 420 Output Total 250 700 Balance 1050 100 420 Lab Results Last 24 Hours: Laboratory Results - last 24 hr 07/12/18 07/12/18 07/12/18 Range/Units 05:41 05:41 05:41 WBC 6.30 (3.98-10.04) K/mm3 RBC 3.92 L (3.98-5.22) M/mm3 Hgb 12.4 (11.2-15.7) gm/L Hct 37.7 (34.1-44.9) % MCV 96.2 H (79.4-94.8) fl MCH 31.6 (25.6-32.2) pg MCHC 32.9 (32.2-35.5) g/dl RDW Std Deviation 42.1 (36.4-46.3) fL Plt Count 184 (182-369) K/mm3 MPV 9.2 L (9.4-12.3) fl Neut % (Auto) 71.6 H (34.0-71.1) % Lymph % (Auto) 13.5 L (19.3-51.7) % [place] % (Auto) 13.3 H (4.7-12.5) % Eos % (Auto) 1.0 (0.7-5.8) Baso % (Auto) 0.3 (0.1-1.2) % Neut # (Auto) 4.51 (1.56-6.13) K/mm3 Lymph # (Auto) 0.85 L (1.18-3.74) K/mm3 [place] # (Auto) 0.84 H (0.24-0.36) K/mm3 Eos # (Auto) 0.06 (0.04-0.36) K/mm3 Baso # (Auto) 0.02 (0.01-0.08) K/mm3 Sodium 139 (136-145) mEq/L Potassium 3.8 (3.5-5.1) mEq/L Chloride 102 (98-107) mEq/L Carbon Dioxide 32 (21-32) mEq/L Anion Gap 8.8 (5-15) BUN 13 (7-18) mg/dL Creatinine 0.7 (0.55-1.02) mg/dL Est Cr Clr Drug Dosing 46.84 mL/min Estimated GFR (MDRD) > 60 (>60) mL/min BUN/Creatinine Ratio 18.6 H (14-18) Glucose 92 (83-115) mg/dL Lactic Acid 0.8 (0.4-2.0) mmol/L Calcium 8.6 (8.5-10.1) mg/dL Phosphorus 3.7 (2.6-4.7) mg/dL Magnesium 2.0 (1.8-2.4) mg/dl Total Bilirubin 0.9 (0.2-1.0) mg/dL AST 46 H (15-37) U/L ALT 36 (14-59) U/L Alkaline Phosphatase 87 (46-116) U/L C-Reactive Protein 17.4 H* (<1.0) mg/dL Total Protein 6.1 L (6.4-8.2) g/dl Albumin 2.5 L (3.4-5.0) g/dl Globulin 3.6 gm/dL Albumin/Globulin Ratio 0.7 L (1-2) Petr Results Last 24 Hours: Microbiology 07/11/18 15:46 Gram Stain - Final Sputum - Expectorated Sputum Culture - Preliminary 07/11/18 09:55 Aerobic Blood Culture - Preliminary Blood - Venous - Lab Draw NO GROWTH AFTER 1 DAY Anaerobic Blood Culture - Preliminary NO GROWTH AFTER 1 DAY 07/11/18 10:05 Aerobic Blood Culture - Preliminary Blood - Venous NO GROWTH AFTER 1 DAY Anaerobic Blood Culture - Preliminary NO GROWTH AFTER 1 DAY 07/11/18 09:29 Influenza Type A Antigen Screen - Final Nasopharyngeal Swab NEGATIVE INFLUENZA A VIRUS AG Influenza Type B Antigen Screen - Final NEGATIVE INFLUENZA B VIRUS AG Med Orders - Current: Current Medications Acetaminophen (Tylenol) 650 mg PO Q4H PRN PRN Reason: Pain (Mild 1-3)/fever Last Admin: 07/12/18 09:04 Dose: 650 mg Albuterol (Proventil Neb Soln) 2.5 mg NEB Q2H PRN PRN Reason: Shortness Of Breath/wheezing Albuterol/Ipratropium (Duoneb 3.0-0.5 Mg/3 Ml) 3 ml NEB Q4H PRN PRN Reason: Shortness Of Breath/wheezing Last Admin: 07/11/18 20:22 Dose: 3 ml Azithromycin (Zithromax) 250 mg PO DAILY@1400 [facility] Stop: 07/15/18 14:01 Last Admin: 07/12/18 13:45 Dose: 250 mg Guaifenesin (Mucinex) 600 mg PO BID [facility] Last Admin: 07/12/18 09:03 Dose: 600 mg Ceftriaxone Sodium 1 gm/ (Sodium Chloride) 100 mls @ 200 mls/hr IV Q24H [facility] Last Admin: 07/12/18 09:03 Dose: 200 mls/hr Metoprolol Succinate (Toprol Xl) 25 mg PO BID [facility] Last Admin: 07/12/18 09:04 Dose: 25 mg Sodium Chloride (Saline Flush) 10 ml FLUSH ASDIRECTED PRN PRN Reason: Keep Vein Open Last Admin: 07/11/18 10:12 Dose: 10 ml Discontinued Medications Albuterol/Ipratropium (Duoneb 3.0-0.5 Mg/3 Ml) 3 ml NEB ONETIME ONE Stop: 07/11/18 08:42 Last Admin: 07/11/18 08:59 Dose: 3 ml Ceftriaxone Sodium (Rocephin) 1 gm IVPUSH Q24H [facility] Ceftriaxone Sodium 2 gm/ (Sodium Chloride) 100 mls @ 200 mls/hr IV ONETIME ONE Stop: 07/11/18 10:09 Last Admin: 07/11/18 10:10 Dose: 200 mls/hr Azithromycin 500 mg/ Sodium (Chloride) 250 mls @ 250 mls/hr IV ONETIME ONE Stop: 07/11/18 14:59 Last Admin: 07/11/18 14:15 Dose: 250 mls/hr Potassium Chloride (Klor-Con M20) 20 meq PO ONETIME ONE Stop: 07/11/18 15:16 Last Admin: 07/11/18 15:27 Dose: 20 meq Potassium Chloride (Klor-Con M20) 20 meq PO ONETIME ONE Stop: 07/11/18 13:30 Last Admin: 07/11/18 16:25 Dose: Not Given Potassium Chloride (Klor-Con M20) 20 meq PO ONETIME ONE Stop: 07/11/18 15:12 Last Admin: 07/11/18 16:25 Dose: Not Given - Exam Quality Assessment: Supplemental Oxygen General: Alert, Oriented HEENT: Pupils Equal, Pupils Reactive Neck: Supple Lungs: Normal Respiratory Effort, Rhonchi Cardiovascular: Regular Rate, Regular Rhythm GI/Abdominal Exam: Normal Bowel Sounds, Soft, Non-Tender Extremities: Normal Inspection, Normal Range of Motion, No Pedal Edema Skin: Warm, Dry Psy/Mental Status: Alert, Normal Affect - Problem List & Annotations (1) Pneumonia SNOMED Code(s): 403709722 Code(s): J18.9 - PNEUMONIA, UNSPECIFIED ORGANISM Status: Acute Current Visit: Yes Qualifiers: Pneumonia type: due to unspecified organism Laterality: right Lung location: upper lobe of lung Qualified Code(s): J18.1 - Lobar pneumonia, unspecified organism (2) Hypoxia SNOMED Code(s): 053949137 Code(s): R09.02 - HYPOXEMIA Status: Acute Current Visit: Yes (3) Hypokalemia SNOMED Code(s): 46878159 Code(s): E87.6 - HYPOKALEMIA Status: Acute Current Visit: Yes (4) Postherpetic neuralgia SNOMED Code(s): 1782893 Code(s): B02.29 - OTHER POSTHERPETIC NERVOUS SYSTEM INVOLVEMENT Status: Acute Current Visit: Yes - Problem List Review Problem List Initiated/Reviewed/Updated: Yes - My Orders Last 24 Hours: My Active Orders 04/17/19 13:18 Oxygen Therapy [RC] PRN Up With Assistance [RC] ASDIRECTED VTE/DVT Education [RC] PER UNIT ROUTINE Vital Signs [RC] Q4HR Respiratory Care Assess and Treatment [CONS] Routine Acetaminophen [Tylenol] 650 mg PO Q4H PRN Albuterol [Proventil Neb Soln] 2.5 mg NEB Q2H PRN Albuterol/Ipratropium [DuoNeb 3.0-0.5 MG/3 ML] 3 ml NEB Q4H PRN Resuscitation Status Routine 07/11/18 13:19 Sequential Compression Device [OM.PC] Per Unit Routine 07/11/18 13:20 Antiembolic Devices [RC] PER UNIT ROUTINE 07/11/18 14:57 Chest Physiotherapy [RT Chest Physiotherapy] [RC] ASDIRECTED RT Incentive Spirometry [RC] ASDIRECTED 07/11/18 15:46 CULTURE SPUTUM + SMEAR [RM] Stat 07/11/18 21:00 Metoprolol Succinate [Toprol XL] 25 mg PO BID 07/11/18 21:15 guaiFENesin [Mucinex] 600 mg PO BID 07/11/18 Dinner Regular Diet [DIET] 07/12/18 10:00 cefTRIAXone [Rocephin] 1 gm Sodium Chloride 0.9% [Normal Saline] 100 ml IV Q24H 07/12/18 11:36 Up ad Iesha [RC] ASDIRECTED Up to Chair [RC] ASDIRECTED 07/12/18 12:30 RESPIRATORY PANEL Routine 07/12/18 12:32 LEGIONELLA ANTIGEN [MREF] Routine STREP PNEUMONIAE ANTIGEN [MREF] Routine 07/12/18 14:00 Azithromycin [Zithromax] 250 mg PO DAILY@1400 07/13/18 05:11 C-REACTIVE PROTEIN [CHEM] AM CBC WITH AUTO DIFF [HEME] AM CMP [COMPREHENSIVE METABOLIC PN,CMP] [CHEM] AM - Plan Plan:: Right upper and lower lobe pneumonia * Admit to [facility] on telemetry * Rocephin 1 g IV every 24 hours and azithromycin 250 mg by mouth daily * RT consult. * DuoNeb every 4 hours when necessary and albuterol nebulizer every 2 hours when necessary shortness of breath, cough, wheezing * Blood cultures done in the ER * Sputum cultures ordered * Lactic acid and white count normal * Repeat CBC and CMP in the morning Hypoxemia * Secondary to pneumonia * FiO2 to maintain oxygen above 90% Hypokalemia * Potassium now normal after 20 mEq of KCl * Recheck CMP in the morning History of tachycardia * Admit to telemetry * Continue metoprolol tartrate 25 mg twice a day * Finish her Holter monitor today. Postherpetic neuralgia * Monitor and treat symptomatically as needed CBC, CMP, C-reactive protein a.m. Length of stay likely 3 days CODE STATUS: DNR/DNI. Discussed with patient and daughter
--- NOTE | 2018-07-13 08:53 | PCM.PN ---
- General Info Date of Service: 07/13/18 Admission Dx/Problem (Free Text): Admission Diagnosis/Problem Admission Diagnosis/Problem Pneumonia Subjective Update: July 13, 2018 Patient states that she is feeling well. She continues on 2 L of O2. Nasal cannula. She did have an episode of tachycardia up to 150 last night. Review of the rhythm strip showed an irregular irregular pattern. This is consistent with atrial fibrillation. ECG from yesterday also demonstrated atrophic fibrillation with a ventricular rate of 100. Patient is on metoprolol, but she is having episodes of tachycardia and even rapid ventricular response. July 12, 2018 Patient had uneventful night. She continues on 2 L of O2 via nasal cannula. She was afebrile. She has no pain and no specific complaints other than coughing. - Review of Systems General: Reports: No Symptoms HEENT: Reports: No Symptoms Pulmonary: Reports: Cough. Denies: Hemoptysis Cardiovascular: Reports: Palpitations. Denies: Chest Pain - Patient Data Vitals - Most Recent: Last Vital Signs Temp 97.3 F 07/13/18 04:05 Pulse 98 07/13/18 04:05 Resp 20 07/13/18 04:05 BP 136/90 07/13/18 04:05 Pulse Ox 96 07/13/18 04:05 Weight - Most Recent: 117 lb I&O - Last 24 Hours: Intake & Output 07/12/18 07/13/18 07/13/18 22:59 06:59 14:59 Intake Total 1280 800 Output Total 500 Balance 780 800 Lab Results Last 24 Hours: Laboratory Results - last 24 hr 07/13/18 07/13/18 Range/Units 05:29 05:29 WBC 5.96 (3.98-10.04) K/mm3 RBC 4.21 (3.98-5.22) M/mm3 Hgb 13.4 (11.2-15.7) gm/L Hct 40.2 (34.1-44.9) % MCV 95.5 H (79.4-94.8) fl MCH 31.8 (25.6-32.2) pg MCHC 33.3 (32.2-35.5) g/dl RDW Std Deviation 41.4 (36.4-46.3) fL Plt Count 217 (182-369) K/mm3 MPV 9.2 L (9.4-12.3) fl Neut % (Auto) 71.9 H (34.0-71.1) % Lymph % (Auto) 13.3 L (19.3-51.7) % [place] % (Auto) 12.9 H (4.7-12.5) % Eos % (Auto) 1.3 (0.7-5.8) Baso % (Auto) 0.3 (0.1-1.2) % Neut # (Auto) 4.28 (1.56-6.13) K/mm3 Lymph # (Auto) 0.79 L (1.18-3.74) K/mm3 [place] # (Auto) 0.77 H (0.24-0.36) K/mm3 Eos # (Auto) 0.08 (0.04-0.36) K/mm3 Baso # (Auto) 0.02 (0.01-0.08) K/mm3 Sodium 139 (136-145) mEq/L Potassium 3.7 (3.5-5.1) mEq/L Chloride 102 (98-107) mEq/L Carbon Dioxide 31 (21-32) mEq/L Anion Gap 9.7 (5-15) BUN 12 (7-18) mg/dL Creatinine 0.7 (0.55-1.02) mg/dL Est Cr Clr Drug Dosing 46.84 mL/min Estimated GFR (MDRD) > 60 (>60) mL/min BUN/Creatinine Ratio 17.1 (14-18) Glucose 96 (83-115) mg/dL Calcium 8.8 (8.5-10.1) mg/dL Total Bilirubin 0.6 (0.2-1.0) mg/dL AST 43 H (15-37) U/L ALT 37 (14-59) U/L Alkaline Phosphatase 91 (46-116) U/L C-Reactive Protein 11.9 H* (<1.0) mg/dL Total Protein 6.3 L (6.4-8.2) g/dl Albumin 2.5 L (3.4-5.0) g/dl Globulin 3.8 gm/dL Albumin/Globulin Ratio 0.7 L (1-2) Petr Results Last 24 Hours: Microbiology 07/11/18 15:46 Gram Stain - Final Sputum - Expectorated Sputum Culture - Preliminary 07/11/18 09:55 Aerobic Blood Culture - Preliminary Blood - Venous - Lab Draw NO GROWTH AFTER 1 DAY Anaerobic Blood Culture - Preliminary NO GROWTH AFTER 1 DAY 07/11/18 10:05 Aerobic Blood Culture - Preliminary Blood - Venous NO GROWTH AFTER 1 DAY Anaerobic Blood Culture - Preliminary NO GROWTH AFTER 1 DAY Med Orders - Current: Current Medications Acetaminophen (Tylenol) 650 mg PO Q4H PRN PRN Reason: Pain (Mild 1-3)/fever Last Admin: 07/12/18 20:12 Dose: 650 mg Albuterol (Proventil Neb Soln) 2.5 mg NEB Q2H PRN PRN Reason: Shortness Of Breath/wheezing Albuterol/Ipratropium (Duoneb 3.0-0.5 Mg/3 Ml) 3 ml NEB Q4H PRN PRN Reason: Shortness Of Breath/wheezing Last Admin: 07/11/18 20:22 Dose: 3 ml Azithromycin (Zithromax) 250 mg PO DAILY@1400 [facility] Stop: 07/15/18 14:01 Last Admin: 07/12/18 13:45 Dose: 250 mg Guaifenesin (Mucinex) 600 mg PO BID [facility] Last Admin: 07/12/18 20:11 Dose: 600 mg Ceftriaxone Sodium 1 gm/ (Sodium Chloride) 100 mls @ 200 mls/hr IV Q24H [facility] Last Admin: 07/12/18 09:03 Dose: 200 mls/hr Metoprolol Succinate (Toprol Xl) 25 mg PO BID [facility] Last Admin: 07/12/18 20:11 Dose: 25 mg Sodium Chloride (Saline Flush) 10 ml FLUSH ASDIRECTED PRN PRN Reason: Keep Vein Open Last Admin: 07/11/18 10:12 Dose: 10 ml Discontinued Medications Albuterol/Ipratropium (Duoneb 3.0-0.5 Mg/3 Ml) 3 ml NEB ONETIME ONE Stop: 07/11/18 08:42 Last Admin: 07/11/18 08:59 Dose: 3 ml Ceftriaxone Sodium (Rocephin) 1 gm IVPUSH Q24H [facility] Ceftriaxone Sodium 2 gm/ (Sodium Chloride) 100 mls @ 200 mls/hr IV ONETIME ONE Stop: 07/11/18 10:09 Last Admin: 07/11/18 10:10 Dose: 200 mls/hr Azithromycin 500 mg/ Sodium (Chloride) 250 mls @ 250 mls/hr IV ONETIME ONE Stop: 07/11/18 14:59 Last Admin: 07/11/18 14:15 Dose: 250 mls/hr Potassium Chloride (Klor-Con M20) 20 meq PO ONETIME ONE Stop: 07/11/18 15:16 Last Admin: 07/11/18 15:27 Dose: 20 meq Potassium Chloride (Klor-Con M20) 20 meq PO ONETIME ONE Stop: 07/11/18 13:30 Last Admin: 07/11/18 16:25 Dose: Not Given Potassium Chloride (Klor-Con M20) 20 meq PO ONETIME ONE Stop: 07/11/18 15:12 Last Admin: 07/11/18 16:25 Dose: Not Given - Exam Quality Assessment: Supplemental Oxygen General: Alert, Oriented HEENT: Pupils Equal, Pupils Reactive Neck: Supple Lungs: Normal Respiratory Effort, Rhonchi, Wheezing Cardiovascular: Regular Rate, Regular Rhythm GI/Abdominal Exam: Normal Bowel Sounds, Soft, Non-Tender, No Distention Extremities: Normal Inspection, Normal Range of Motion, No Pedal Edema EKG INTERPRETATION EKG Date: 07/12/18 Time: 18:45 Rhythm: A-Fib Rate (Beats/Min): 100 [place]: LAD-Left [place] Deviation P-Wave: Absent QRS: Normal ST-T: Normal QT: Normal EKG Interpretation Comments: Abnormal ECG, atrial fibrillation - Problem List & Annotations (1) Pneumonia SNOMED Code(s): 093080702 Code(s): J18.9 - PNEUMONIA, UNSPECIFIED ORGANISM Status: Acute Current Visit: Yes Qualifiers: Pneumonia type: due to unspecified organism Laterality: right Lung location: upper lobe of lung Qualified Code(s): J18.1 - Lobar pneumonia, unspecified organism (2) Hypoxia SNOMED Code(s): 626173347 Code(s): R09.02 - HYPOXEMIA Status: Acute Current Visit: Yes (3) Hypokalemia SNOMED Code(s): 59809112 Code(s): E87.6 - HYPOKALEMIA Status: Acute Current Visit: Yes (4) Postherpetic neuralgia SNOMED Code(s): 2404179 Code(s): B02.29 - OTHER POSTHERPETIC NERVOUS SYSTEM INVOLVEMENT Status: Acute Current Visit: Yes (5) Paroxysmal atrial fibrillation SNOMED Code(s): 162354937 Code(s): I48.0 - PAROXYSMAL ATRIAL FIBRILLATION Status: Acute Current Visit: Yes - Problem List Review Problem List Initiated/Reviewed/Updated: Yes - My Orders Last 24 Hours: My Active Orders 07/12/18 10:00 cefTRIAXone [Rocephin] 1 gm Sodium Chloride 0.9% [Normal Saline] 100 ml IV Q24H 07/12/18 11:36 Up ad Iesha [RC] ASDIRECTED Up to Chair [RC] ASDIRECTED 07/12/18 13:33 LEGIONELLA ANTIGEN [MREF] Routine RESPIRATORY PANEL Routine STREP PNEUMONIAE ANTIGEN [MREF] Routine 07/12/18 14:00 Azithromycin [Zithromax] 250 mg PO DAILY@1400 - Plan Plan:: Right upper and lower lobe pneumonia * Admit to Medr on telemetry * Rocephin 1 g IV every 24 hours and azithromycin 250 mg by mouth daily * RT consult. * DuoNeb every 4 hours when necessary and albuterol nebulizer every 2 hours when necessary shortness of breath, cough, wheezing * Blood cultures done in the ER - no growth * Sputum cultures ordered - no growth * Lactic acid and white count normal * Repeat CBC and CMP in the morning * Start prednisone 40 mg a day Paroxysmal atrial fibrillation * Increase metoprolol to succinate to 75 mg a day. She'll get an extra 25 this morning and start 50 mg in the evenings and 25 mg in the morning. * Continue to monitor on telemetry. Hypoxemia * Secondary to pneumonia * FiO2 to maintain oxygen above 90% Hypokalemia - resolved Postherpetic neuralgia * Monitor and treat symptomatically as needed CBC, CMP, C-reactive protein a.m. Length of stay likely 3 days CODE STATUS: DNR/DNI. Discussed with patient and daughter
[2018-07-13] MEDS: guaiFENesin 600 MG Tab.ER PO SCH ×2 (09:07→21:32)
[2018-07-13] MEDS: Metoprolol Succinate 25 MG Tab.ER PO SCH (09:07)
[2018-07-13] MEDS: cefTRIAXone 1 GM in Sodium Chloride 0.9% 100 ML IV SCH (09:08)
[2018-07-13] MEDS ORDERED: Metoprolol Succinate 25 MG Tab.ER PO ONE (09:58)
[2018-07-13] MEDS: predniSONE 20 MG Tab PO SCH (13:04)
[2018-07-13] MEDS: Azithromycin 250 MG Tab PO SCH (13:05)
[2018-07-13] MEDS: Albuterol/Ipratropium 3.0-0.5 MG/3 ML Neb Soln NEB PRN (20:28)
[2018-07-13] MEDS: Metoprolol Succinate 50 MG Tab.ER PO SCH (21:28)
[2018-07-13] MEDS: Apixaban 2.5 MG Tab PO SCH (21:30)
[2018-07-14] MEDS: Metoprolol Succinate 25 MG Tab.ER PO SCH (10:24)
[2018-07-14] MEDS: Apixaban 2.5 MG Tab PO SCH ×2 (10:25→20:41)
[2018-07-14] MEDS: guaiFENesin 600 MG Tab.ER PO SCH ×2 (10:25→20:41)
[2018-07-14] MEDS: cefTRIAXone 1 GM in Sodium Chloride 0.9% 100 ML IV SCH (10:25)
[2018-07-14] MEDS: Azithromycin 250 MG Tab PO SCH (12:59)
[2018-07-14] MEDS: predniSONE 20 MG Tab PO SCH (12:59)
--- NOTE | 2018-07-14 15:46 | PCM.PN ---
- General Info Date of Service: 07/14/18 Admission Dx/Problem (Free Text): Admission Diagnosis/Problem Admission Diagnosis/Problem Pneumonia Subjective Update: July 14, 2018 Patient continues to need O2. Respiratory panel came back positive for parainfluenza and strep pneumonia antigen urine was positive. Pulses now in the 70s. July 13, 2018 Patient states that she is feeling well. She continues on 2 L of O2. Nasal cannula. She did have an episode of tachycardia up to 150 last night. Review of the rhythm strip showed an irregular irregular pattern. This is consistent with atrial fibrillation. ECG from yesterday also demonstrated atrophic fibrillation with a ventricular rate of 100. Patient is on metoprolol, but she is having episodes of tachycardia and even rapid ventricular response. July 12, 2018 Patient had uneventful night. She continues on 2 L of O2 via nasal cannula. She was afebrile. She has no pain and no specific complaints other than coughing. - Review of Systems General: Reports: No Symptoms. Denies: Fever HEENT: Reports: No Symptoms Pulmonary: Reports: Cough, Wheezing Cardiovascular: Reports: No Symptoms Gastrointestinal: Reports: No Symptoms - Patient Data Vitals - Most Recent: Last Vital Signs Temp 98.8 F 07/14/18 08:12 Pulse 69 07/14/18 13:09 Resp 20 07/14/18 08:12 BP 131/68 07/14/18 10:24 Pulse Ox 91 L 07/14/18 13:09 Weight - Most Recent: 115 lb 12.8 oz I&O - Last 24 Hours: Intake & Output 07/14/18 07/14/18 07/14/18 06:59 14:59 22:59 Intake Total 600 760 Output Total 500 Balance 100 760 Lab Results Last 24 Hours: Laboratory Results - last 24 hr 07/12/18 07/14/18 07/14/18 Range/Units 13:33 08:57 08:57 WBC 7.59 (3.98-10.04) K/mm3 RBC 4.67 (3.98-5.22) M/mm3 Hgb 14.9 D (11.2-15.7) gm/L Hct 44.2 (34.1-44.9) % MCV 94.6 (79.4-94.8) fl MCH 31.9 (25.6-32.2) pg MCHC 33.7 (32.2-35.5) g/dl RDW Std Deviation 41.2 (36.4-46.3) fL Plt Count 320 (182-369) K/mm3 MPV 8.9 L (9.4-12.3) fl Neut % (Auto) 71.2 H (34.0-71.1) % Lymph % (Auto) 16.5 L (19.3-51.7) % [place] % (Auto) 10.4 (4.7-12.5) % Eos % (Auto) 0.7 (0.7-5.8) Baso % (Auto) 0.3 (0.1-1.2) % Neut # (Auto) 5.41 (1.56-6.13) K/mm3 Lymph # (Auto) 1.25 (1.18-3.74) K/mm3 [place] # (Auto) 0.79 H (0.24-0.36) K/mm3 Eos # (Auto) 0.05 (0.04-0.36) K/mm3 Baso # (Auto) 0.02 (0.01-0.08) K/mm3 Sodium 138 (136-145) mEq/L Potassium 3.7 (3.5-5.1) mEq/L Chloride 99 (98-107) mEq/L Carbon Dioxide 32 (21-32) mEq/L Anion Gap 10.7 (5-15) BUN 16 (7-18) mg/dL Creatinine 0.9 (0.55-1.02) mg/dL Est Cr Clr Drug Dosing 36.43 mL/min Estimated GFR (MDRD) 59 (>60) mL/min BUN/Creatinine Ratio 17.8 (14-18) Glucose 139 H (83-115) mg/dL Calcium 9.5 (8.5-10.1) mg/dL Magnesium 2.1 (1.8-2.4) mg/dl Total Bilirubin 0.5 (0.2-1.0) mg/dL AST 41 H (15-37) U/L ALT 44 (14-59) U/L Alkaline Phosphatase 100 (46-116) U/L C-Reactive Protein 6.1 H* (<1.0) mg/dL Total Protein 7.2 (6.4-8.2) g/dl Albumin 3.0 L (3.4-5.0) g/dl Globulin 4.2 gm/dL Albumin/Globulin Ratio 0.7 L (1-2) Adenovirus (PCR) Not detected (Not Detected) B. pertussis DNA (PCR) Not detected (Not Detected) B.parapertussis DNA PCR Not detected (Not Detected) C. pneumoniae DNA (PCR) Not detected (Not Detected) Coronavirus (PCR) Not detected (Not Detected) Human Metapneumovir PCR Not detected (Not Detected) Influenza A (RT-PCR) Not detected (Not Detected) Influenza B (RT-PCR) Not detected (Not Detected) M. pneumoniae (PCR) Not detected (Not Detected) Parainfluen 1,2,3,4 PCR Detected H (Not Detected) RSV (PCR) Not detected (Not Detected) Entero/Rhino (PCR) Not detected (Not Detected) Petr Results Last 24 Hours: Microbiology 07/11/18 09:55 Aerobic Blood Culture - Preliminary Blood - Venous - Lab Draw NO GROWTH AFTER 3 DAYS Anaerobic Blood Culture - Preliminary NO GROWTH AFTER 3 DAYS 07/11/18 10:05 Aerobic Blood Culture - Preliminary Blood - Venous NO GROWTH AFTER 3 DAYS Anaerobic Blood Culture - Preliminary NO GROWTH AFTER 3 DAYS 07/11/18 15:46 Gram Stain - Final Sputum - Expectorated Sputum Culture - Final Streptococcus Pneumoniae 07/12/18 13:33 Streptococcus pneumoniae Antigen (M - Final Urine 07/12/18 13:33 Legionella Urinary Antigen - Final Urine Med Orders - Current: Current Medications Acetaminophen (Tylenol) 650 mg PO Q4H PRN PRN Reason: Pain (Mild 1-3)/fever Last Admin: 07/12/18 20:12 Dose: 650 mg Albuterol (Proventil Neb Soln) 2.5 mg NEB Q2H PRN PRN Reason: Shortness Of Breath/wheezing Albuterol/Ipratropium (Duoneb 3.0-0.5 Mg/3 Ml) 3 ml NEB Q4H PRN PRN Reason: Shortness Of Breath/wheezing Last Admin: 07/13/18 20:28 Dose: 3 ml Apixaban (Eliquis) 2.5 mg PO BID [facility] Last Admin: 07/14/18 10:25 Dose: 2.5 mg Azithromycin (Zithromax) 250 mg PO DAILY@1400 [facility] Stop: 07/15/18 14:01 Last Admin: 07/14/18 12:59 Dose: 250 mg Guaifenesin (Mucinex) 600 mg PO BID [facility] Last Admin: 07/14/18 10:25 Dose: 600 mg Ceftriaxone Sodium 1 gm/ (Sodium Chloride) 100 mls @ 200 mls/hr IV Q24H [facility] Last Admin: 07/14/18 10:25 Dose: 200 mls/hr Metoprolol Succinate (Toprol Xl) 50 mg PO BEDTIME [facility] Last Admin: 07/13/18 21:28 Dose: 50 mg Metoprolol Succinate (Toprol Xl) 25 mg PO DAILY [facility] Last Admin: 07/14/18 10:24 Dose: 25 mg Sodium Chloride (Saline Flush) 10 ml FLUSH ASDIRECTED PRN PRN Reason: Keep Vein Open Last Admin: 07/11/18 10:12 Dose: 10 ml Discontinued Medications Albuterol/Ipratropium (Duoneb 3.0-0.5 Mg/3 Ml) 3 ml NEB ONETIME ONE Stop: 07/11/18 08:42 Last Admin: 07/11/18 08:59 Dose: 3 ml Ceftriaxone Sodium (Rocephin) 1 gm IVPUSH Q24H [facility] Ceftriaxone Sodium 2 gm/ (Sodium Chloride) 100 mls @ 200 mls/hr IV ONETIME ONE Stop: 07/11/18 10:09 Last Admin: 07/11/18 10:10 Dose: 200 mls/hr Azithromycin 500 mg/ Sodium (Chloride) 250 mls @ 250 mls/hr IV ONETIME ONE Stop: 07/11/18 14:59 Last Admin: 07/11/18 14:15 Dose: 250 mls/hr Metoprolol Succinate (Toprol Xl) 25 mg PO BID [facility] Last Admin: 07/13/18 09:07 Dose: 25 mg Metoprolol Succinate (Toprol Xl) 25 mg PO ONETIME ONE Stop: 07/13/18 09:59 Last Admin: 07/13/18 10:45 Dose: 25 mg Potassium Chloride (Klor-Con M20) 20 meq PO ONETIME ONE Stop: 07/11/18 15:16 Last Admin: 07/11/18 15:27 Dose: 20 meq Potassium Chloride (Klor-Con M20) 20 meq PO ONETIME ONE Stop: 07/11/18 13:30 Last Admin: 07/11/18 16:25 Dose: Not Given Potassium Chloride (Klor-Con M20) 20 meq PO ONETIME ONE Stop: 07/11/18 15:12 Last Admin: 07/11/18 16:25 Dose: Not Given Prednisone (Prednisone) 40 mg PO Q24H [facility] Stop: 07/14/18 12:01 Last Admin: 07/14/18 12:59 Dose: 40 mg - Exam Quality Assessment: Supplemental Oxygen General: Alert, Oriented HEENT: Pupils Equal, Pupils Reactive Neck: Supple Lungs: Normal Respiratory Effort, Wheezing Cardiovascular: Regular Rate, Regular Rhythm GI/Abdominal Exam: Normal Bowel Sounds, Soft, Non-Tender - Problem List & Annotations (1) Pneumonia SNOMED Code(s): 868815377 Code(s): J18.9 - PNEUMONIA, UNSPECIFIED ORGANISM Status: Acute Current Visit: Yes Qualifiers: Pneumonia type: due to unspecified organism Laterality: right Lung location: upper lobe of lung Qualified Code(s): J18.1 - Lobar pneumonia, unspecified organism (2) Hypoxia SNOMED Code(s): 028065217 Code(s): R09.02 - HYPOXEMIA Status: Acute Current Visit: Yes (3) Hypokalemia SNOMED Code(s): 54252260 Code(s): E87.6 - HYPOKALEMIA Status: Acute Current Visit: Yes (4) Postherpetic neuralgia SNOMED Code(s): 5413521 Code(s): B02.29 - OTHER POSTHERPETIC NERVOUS SYSTEM INVOLVEMENT Status: Acute Current Visit: Yes (5) Paroxysmal atrial fibrillation SNOMED Code(s): 064000197 Code(s): I48.0 - PAROXYSMAL ATRIAL FIBRILLATION Status: Acute Current Visit: Yes - Problem List Review Problem List Initiated/Reviewed/Updated: Yes - My Orders Last 24 Hours: My Active Orders 07/13/18 21:00 Apixaban [Eliquis] 2.5 mg PO BID Metoprolol Succinate [Toprol XL] 50 mg PO BEDTIME 07/14/18 09:00 Metoprolol Succinate [Toprol XL] 25 mg PO DAILY 07/14/18 15:21 Activity as Tolerated [RC] .Routine 07/14/18 15:22 Activity as Tolerated [RC] .Routine - Plan Plan:: Right upper and lower lobe pneumonia * Admit to MedSurg on telemetry * Rocephin 1 g IV every 24 hours and azithromycin 250 mg by mouth daily * RT consult. * DuoNeb every 4 hours when necessary and albuterol nebulizer every 2 hours when necessary shortness of breath, cough, wheezing * Blood cultures done in the ER - no growth * Sputum cultures ordered - no growth * Lactic acid and white count normal * Repeat CBC and CMP in the morning * prednisone 40 mg a day Paroxysmal atrial fibrillation * Increase metoprolol to succinate to 75 mg a day. She'll get an extra 25 this morning and start 50 mg in the evenings and 25 mg in the morning. * Continue to monitor on telemetry. Hypoxemia * Secondary to pneumonia * FiO2 to maintain oxygen above 90% Hypokalemia - resolved Postherpetic neuralgia * Monitor and treat symptomatically as needed CBC, CMP, C-reactive protein a.m. Length of stay likely 3 days; patient will be discharged when she no longer needs oxygen. CODE STATUS: DNR/DNI. Discussed with patient and daughter
[2018-07-14] MEDS: Acetaminophen 325 MG Tab PO PRN (20:38)
[2018-07-14] MEDS: Metoprolol Succinate 50 MG Tab.ER PO SCH (20:40)
[2018-07-15] MEDS: Acetaminophen 325 MG Tab PO PRN (05:37)
[2018-07-15] MEDS: Metoprolol Succinate 25 MG Tab.ER PO SCH (08:16)
[2018-07-15] MEDS: guaiFENesin 600 MG Tab.ER PO SCH (08:17)
[2018-07-15] MEDS: Apixaban 2.5 MG Tab PO SCH (08:17)
[2018-07-15] MEDS: cefTRIAXone 1 GM in Sodium Chloride 0.9% 100 ML IV SCH (09:04)
[2018-07-15] MEDS ORDERED: predniSONE 20 MG Tab PO ONE (10:26)
--- NOTE | 2018-07-15 12:40 | PCM.DCSUM1 ---
Discharge Summary - Hospital Course HPI Initial Comments: 88-year-old female with three-day history of cough present to the emergency room with worsening symptoms overnight. She states that last night she had a productive cough of clear sputum that worsened. She states the cough likely started Monday, but it was not severe until last night. She denies any shortness of breath, chest pain, orthopnea, PND, or dyspnea on exertion. She does have some slight dizziness. Patient states that nothing makes her cough worse. She does complain of some chills. In the emergency room her initial oxygenation was 84%. Chest x-ray was performed which showed a right upper and lower lobe pneumonia. It was determined patient needed hospitalization for her pneumonia and hypoxemia. She had blood cultures, Rocephin 2 g, and lab work done. White count was normal, lactic acid was normal. Patient also developed shingles last August. 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 She has tried multiple treatments including lidocaine patches without benefit. 2 weeks ago she was seen by her primary care provider and her heart rate was 110. She states she has been on metoprolol for years 12.5 mg twice a day for racing heart. He increased the dose to 25 mg twice a day and she had significant improvement. She is currently wearing a Holter monitor that was put on yesterday morning and is due to be removed tomorrow morning. Brief History: Patient was admitted with pneumonia. She was treated with Rocephin and azithromycin. Streptococcal pneumoniae was found both in her sputum and urine antigen. Patient had an uneventful course and was weaned off oxygen and will go home on by mouth medications. Patient was also found to have paroxysmal runs of atrial fibrillation up to 130s. We increased her metoprolol sustained to 75 mg a day and started her on Eliquis 2.5 mg twice a day. She will need to follow-up with her mathematician research or PCP and get appropriate workup. Diagnosis: Stroke: No - Discharge Data Discharge Date: 07/15/18 Discharge Disposition: Home, Self-Care 01 Condition: Good - Discharge Diagnosis/Problem(s) (1) Pneumonia SNOMED Code(s): 521920439 ICD Code: J18.9 - PNEUMONIA, UNSPECIFIED ORGANISM Status: Acute Current Visit: Yes Qualifiers: Pneumonia type: due to unspecified organism Laterality: right Lung location: upper lobe of lung Qualified Code(s): J18.1 - Lobar pneumonia, unspecified organism (2) Hypoxia SNOMED Code(s): 382417321 ICD Code: R09.02 - HYPOXEMIA Status: Acute Current Visit: Yes (3) Hypokalemia SNOMED Code(s): 29167616 ICD Code: E87.6 - HYPOKALEMIA Status: Acute Current Visit: Yes (4) Postherpetic neuralgia SNOMED Code(s): 7280459 ICD Code: B02.29 - OTHER POSTHERPETIC NERVOUS SYSTEM INVOLVEMENT Status: Acute Current Visit: Yes (5) Paroxysmal atrial fibrillation SNOMED Code(s): 957161153 ICD Code: I48.0 - PAROXYSMAL ATRIAL FIBRILLATION Status: Acute Current Visit: Yes - Patient Summary/Data Consults: Consultations 07/11/18 13:18 Respiratory Care Assess and Treatment [CONS] Routine - Patient Instructions Diet: Heart Healthy Diet, Usual Diet as Tolerated Activity: As Tolerated Driving: May Drive Today Showering/Bathing: May Shower Notify Provider of: Fever - Discharge Plan Prescriptions/Med Rec: Amoxicillin/Potassium Clav [Augmentin 875-125 Tablet] 1 each PO BID #10 tablet Apixaban [Eliquis] 2.5 mg PO BID #60 tablet Azithromycin [Zithromax] 250 mg PO DAILY@1400 #2 tablet guaiFENesin [Mucinex] 600 mg PO BID #30 tab.er Metoprolol Succinate [Toprol XL 50mg] 50 mg PO BEDTIME #30 tab.er Metoprolol Succinate [Toprol XL] 25 mg PO DAILY #30 tab.er Home Medications: Home Meds Cholecalciferol (Vitamin D3) [Vitamin D3] 2,000 units PO DAILY 07/11/18 [History ] Fish Oil/Borage/Flax/Om3,6,9#1 [Triple [place] Complex 3-6-9] 3,000 mg PO DAILY [History] Glucosamine [Glucosamine Sulfate] 3 tab PO DAILY 07/11/18 [History] Lidocaine 5% [Lidoderm 5%] 1 patch TOP DAILY 07/14/18 [History] Amoxicillin/Potassium Clav [Augmentin 875-125 Tablet] 1 each PO BID #10 tablet 07/15/18 [Rx] Apixaban [Eliquis] 2.5 mg PO BID #60 tablet 07/15/18 [Rx] Azithromycin [Zithromax] 250 mg PO DAILY@1400 #2 tablet 07/15/18 [Rx] Metoprolol Succinate [Toprol XL 50mg] 50 mg PO BEDTIME #30 tab.er 07/15/18 [Rx] Metoprolol Succinate [Toprol XL] 25 mg PO DAILY #30 tab.er 07/15/18 [Rx] guaiFENesin [Mucinex] 600 mg PO BID #30 tab.er 07/15/18 [Rx] Patient Handouts: Apixaban oral tablets, Community-Acquired Pneumonia, Adult, [id number] Referrals: Dominic Cano MD [Primary Care Provider] - (Please call and schedule an apt. in 7-10 days. ) - Discharge Summary/Plan Comment DC Time >30 min.: Yes Discharge Summary/Plan Comment: Patient was admitted with pneumonia. She was treated with Rocephin and azithromycin. Streptococcal pneumoniae was found both in her sputum and urine antigen. Patient had an uneventful course and was weaned off oxygen and will go home on by mouth medications. Patient was also found to have paroxysmal runs of atrial fibrillation up to 130s. We increased her metoprolol sustained to 75 mg a day and started her on Eliquis 2.5 mg twice a day. She will need to follow-up with her mathematician research or PCP and get appropriate workup. - General Info Date of Service: 07/15/18 Admission Dx/Problem (Free Text: Admission Diagnosis/Problem Admission Diagnosis/Problem Pneumonia Subjective Update: July 15, 2018 Patient had an uneventful night. We were able to wean her off of her oxygen and she maintains her pulse ox in the low to mid 90s even with ambulation. July 14, 2018 Patient continues to need O2. Respiratory panel came back positive for parainfluenza and strep pneumonia antigen urine was positive. Pulses now in the 70s. July 13, 2018 Patient states that she is feeling well. She continues on 2 L of O2. Nasal cannula. She did have an episode of tachycardia up to 150 last night. Review of the rhythm strip showed an irregular irregular pattern. This is consistent with atrial fibrillation. ECG from yesterday also demonstrated atrophic fibrillation with a ventricular rate of 100. Patient is on metoprolol, but she is having episodes of tachycardia and even rapid ventricular response. July 12, 2018 Patient had uneventful night. She continues on 2 L of O2 via nasal cannula. She was afebrile. She has no pain and no specific complaints other than coughing. Functional Status: Reports: Pain Controlled - Review of Systems General: Reports: No Symptoms. Denies: Fever, Weakness HEENT: Reports: No Symptoms Pulmonary: Reports: Cough. Denies: Shortness of Breath Cardiovascular: Reports: No Symptoms. Denies: Chest Pain, Palpitations - Patient Data Vitals - Most Recent: Last Vital Signs Temp 98.4 F 07/15/18 05:19 Pulse 64 07/15/18 08:16 Resp 16 07/15/18 05:19 BP 136/99 H 07/15/18 08:16 Pulse Ox 94 L 07/15/18 06:36 Weight - Most Recent: 113 lb 11.2 oz I&O - Last 24 hours: Intake & Output 07/14/18 07/15/18 07/15/18 22:59 06:59 14:59 Intake Total 1040 400 420 Output Total 650 700 Balance 390 -300 420 BRIAN Results - Last 24 hrs: Microbiology 07/11/18 09:55 Aerobic Blood Culture - Preliminary Blood - Venous - Lab Draw NO GROWTH AFTER 4 DAYS Anaerobic Blood Culture - Preliminary NO GROWTH AFTER 4 DAYS 07/11/18 10:05 Aerobic Blood Culture - Preliminary Blood - Venous NO GROWTH AFTER 4 DAYS Anaerobic Blood Culture - Preliminary NO GROWTH AFTER 4 DAYS 07/11/18 15:46 Gram Stain - Final Sputum - Expectorated Sputum Culture - Final Streptococcus Pneumoniae Med Orders - Current: Current Medications Acetaminophen (Tylenol) 650 mg PO Q4H PRN PRN Reason: Pain (Mild 1-3)/fever Last Admin: 07/15/18 05:37 Dose: 650 mg Albuterol (Proventil Neb Soln) 2.5 mg NEB Q2H PRN PRN Reason: Shortness Of Breath/wheezing Albuterol/Ipratropium (Duoneb 3.0-0.5 Mg/3 Ml) 3 ml NEB Q4H PRN PRN Reason: Shortness Of Breath/wheezing Last Admin: 07/13/18 20:28 Dose: 3 ml Apixaban (Eliquis) 2.5 mg PO BID HERMILO Last Admin: 07/15/18 08:17 Dose: 2.5 mg Azithromycin (Zithromax) 250 mg PO DAILY@1400 [facility] Stop: 07/15/18 14:01 Last Admin: 07/14/18 12:59 Dose: 250 mg Guaifenesin (Mucinex) 600 mg PO BID [facility] Last Admin: 07/15/18 08:17 Dose: 600 mg Ceftriaxone Sodium 1 gm/ (Sodium Chloride) 100 mls @ 200 mls/hr IV Q24H [facility] Last Admin: 07/15/18 09:04 Dose: 200 mls/hr Metoprolol Succinate (Toprol Xl) 50 mg PO BEDTIME [facility] Last Admin: 07/14/18 20:40 Dose: 50 mg Metoprolol Succinate (Toprol Xl) 25 mg PO DAILY [facility] Last Admin: 07/15/18 08:16 Dose: 25 mg Sodium Chloride (Saline Flush) 10 ml FLUSH ASDIRECTED PRN PRN Reason: Keep Vein Open Last Admin: 07/11/18 10:12 Dose: 10 ml Discontinued Medications Albuterol/Ipratropium (Duoneb 3.0-0.5 Mg/3 Ml) 3 ml NEB ONETIME ONE Stop: 07/11/18 08:42 Last Admin: 07/11/18 08:59 Dose: 3 ml Ceftriaxone Sodium (Rocephin) 1 gm IVPUSH Q24H [facility] Ceftriaxone Sodium 2 gm/ (Sodium Chloride) 100 mls @ 200 mls/hr IV ONETIME ONE Stop: 07/11/18 10:09 Last Admin: 07/11/18 10:10 Dose: 200 mls/hr Azithromycin 500 mg/ Sodium (Chloride) 250 mls @ 250 mls/hr IV ONETIME ONE Stop: 07/11/18 14:59 Last Admin: 07/11/18 14:15 Dose: 250 mls/hr Metoprolol Succinate (Toprol Xl) 25 mg PO BID [facility] Last Admin: 07/13/18 09:07 Dose: 25 mg Metoprolol Succinate (Toprol Xl) 25 mg PO ONETIME ONE Stop: 07/13/18 09:59 Last Admin: 07/13/18 10:45 Dose: 25 mg Potassium Chloride (Klor-Con M20) 20 meq PO ONETIME ONE Stop: 07/11/18 15:16 Last Admin: 07/11/18 15:27 Dose: 20 meq Potassium Chloride (Klor-Con M20) 20 meq PO ONETIME ONE Stop: 07/11/18 13:30 Last Admin: 07/11/18 16:25 Dose: Not Given Potassium Chloride (Klor-Con M20) 20 meq PO ONETIME ONE Stop: 07/11/18 15:12 Last Admin: 07/11/18 16:25 Dose: Not Given Prednisone (Prednisone) 40 mg PO Q24H HERMILO Stop: 07/14/18 12:01 Last Admin: 07/14/18 12:59 Dose: 40 mg Prednisone (Prednisone) 40 mg PO ONETIME ONE Stop: 07/16/18 10:01 Prednisone (Prednisone) 40 mg PO ONETIME ONE Stop: 07/16/18 10:23 Prednisone (Prednisone) 40 mg PO ONETIME ONE Stop: 07/15/18 10:27 Last Admin: 07/15/18 10:56 Dose: 40 mg
[2018-07-16] MEDS ORDERED: predniSONE 20 MG Tab PO ONE ×2 (10:00→10:22)
== END 2018-07-15 13:14 | disposition home or self-care (01) | DRG 194 ==
LOC: JD.ED 07:50 → JD.MS 11:12
PROVIDERS: ADMIT Family Medicine; ATTEND Family Medicine
DX: J18.1 Lobar pneumonia, unspecified organism (principal); B02.29 Other postherpetic nervous system involvement; R09.02 Hypoxemia; I10 Essential (primary) hypertension; H54.7 Unspecified visual loss; E87.6 Hypokalemia; R50.9 Fever, unspecified; R05 Cough; I48.0 Paroxysmal atrial fibrillation; Z91.013 Allergy to seafood; Z79.899 Other long term (current) drug therapy; Z66 Do not resuscitate
CPT/HCPCS: 36415; 71046; 80053; 83605; 85025; 87040 ×2; 87804 ×2; 94640; 96365; 99284; J0696; J7030; 83735; 84100; 86140; 87070; 87077; 87181; 87184; 87205; 87486; 87581; 87632; 87798; 87899; 93005; 94667; 94668; 94760; 94761; 99285; A9270-GY; J0456; J7050; J7620-GY

== ENCOUNTER 2020-03-15 07:56 | Emergency (ER) | payer MEDICARE, OTHER ==
--- NOTE | 2020-03-15 09:27 | EDM.PDOC ---
ED HPI GENERAL MEDICAL PROBLEM - General Chief Complaint: General Stated Complaint: LIGHT HEADED Time Seen by Provider: 03/15/20 09:16 - History of Present Illness INITIAL COMMENTS - FREE TEXT/NARRATIVE: 89-year-old female presents the emergency room lightheaded. Patient had an episode like this about a week ago she did not think much of it it lasted several hours and she decided to go to bed and when she woke up the next morning she felt fine. She is done well with it until this morning when she has more frequent more severe episodes of lightheadedness. She gets a little shaky on her feet but has not fallen as a result of this. She is not had any associated chest pain chest pressure. She has not noticed any palpitations. The patient did fall not related to being lightheaded about 5 or 6 days ago while doing some chores she did fall backwards and her tailbone has been sore since then she is not having any problems with ambulation at this time. The patient has a history of atrial fibrillation she takes Eliquis and she is on Toprol-XL. - Related Data Allergies Allergy/AdvReac Type Severity Reaction Status Date / Time shellfish derived Allergy Swelling Verified 03/15/20 08:23 Home Meds: Home Meds Cholecalciferol (Vitamin D3) [Vitamin D3] 2,000 units PO DAILY 07/11/18 [History] Fish Oil/Borage/Flax/Om3,6,9 1 [Triple [place] Complex 3-6-9] 3,000 mg PO DAILY 07/11/18 [History] Glucosamine [Glucosamine Sulfate] 3 tab PO DAILY 07/11/18 [History] Lidocaine 5% [Lidoderm 5%] 1 patch TOP DAILY 07/14/18 [History] Amoxicillin/Potassium Clav [Augmentin 875-125 Tablet] 1 each PO BID #10 tablet 07/15/18 [Rx] Apixaban [Eliquis] 2.5 mg PO BID #60 tablet 07/15/18 [Rx] Azithromycin [Zithromax] 250 mg PO DAILY@1400 #2 tablet 07/15/18 [Rx] Metoprolol Succinate [Toprol XL 50mg] 50 mg PO BEDTIME #30 tab.er 07/15/18 [Rx] Metoprolol Succinate [Toprol XL] 25 mg PO DAILY #30 tab.er 07/15/18 [Rx] guaiFENesin [Mucinex] 600 mg PO BID #30 tab.er 07/15/18 [Rx] Past Medical History HEENT History: Reports: Impaired Vision, Other (See Below) Other HEENT History: wears corrective lenses; tooth pulled Cardiovascular History: Reports: Other (See Below) Other Cardiovascular History: high heart rate TRANSCRIPTION History: Reports: - Infectious Disease History Infectious Disease History: Reports: Shingles - Past Surgical History HEENT Surgical History: Reports: Tonsillectomy Cardiovascular Surgical History: Reports: None Social & Family History - Family History Family Medical History: No Pertinent Family History - Tobacco Use Tobacco Use Status *Q: Never Tobacco User - Caffeine Use Caffeine Use: Reports: None ED ROS GENERAL - Review of Systems Review Of Systems: See Below Constitutional: Reports: No Symptoms HEENT: Reports: No Symptoms Respiratory: Reports: No Symptoms Cardiovascular: Reports: Lightheadedness. Denies: Chest Pain, Dyspnea on Exertion, Edema Endocrine: Reports: No Symptoms GI/Abdominal: Reports: No Symptoms : Reports: No Symptoms Musculoskeletal: Reports: No Symptoms Skin: Reports: No Symptoms Neurological: Reports: No Symptoms Psychiatric: Reports: No Symptoms ED EXAM, GENERAL - Physical Exam Exam: See Below Exam Limited By: No Limitations General Appearance: Alert, No Apparent Distress, Other (Telemetry she has intermittent dysrhythmia where she seems to develop frequent PACs then after 1 of these PACs she goes into a junctional bradycardia oftentimes rate as low as in the 20s or 30s. I suspect this could be contributing to her dizziness.) Head: Atraumatic, Normocephalic Neck: Normal Inspection, Supple, Non-Tender, Full Range of Motion. No: Lymphadenopathy (L), Lymphadenopathy (R) Respiratory/Chest: No Respiratory Distress, Lungs Clear, Normal Breath Sounds, Chest Non-Tender, Respiratory Distress Cardiovascular: Regular Rate, Rhythm, No Edema, No Murmur GI/Abdominal: Normal Bowel Sounds, Soft, Non-Tender Back Exam: Normal Inspection. No: CVA Tenderness (L), CVA Tenderness (R), Vertebral Tenderness Extremities: Normal Inspection, No Pedal Edema Course - Vital Signs Last Recorded V/S: Last Vital Signs Temp 36.6 C 03/15/20 08:20 Pulse 59 L 03/15/20 08:20 Resp 16 03/15/20 08:20 BP 164/72 H 03/15/20 08:20 Pulse Ox 97 03/15/20 08:20 - Orders/Labs/Meds Orders: Active Orders 24 hr Category Date Time Status EKG 12 Lead [EKG Documentation Completion] [RC] STAT Care 03/15/20 08:37 Active CORONAVIRUS COVID-19 DIANA [MOLEC] Stat Lab 03/15/20 12:18 Ordered Labs: Laboratory Tests 03/15/20 03/15/20 03/15/20 Range/Units 08:40 08:40 09:39 WBC 5.89 (3.98-10.04) K/mm3 RBC 4.78 (3.98-5.22) M/mm3 Hgb 15.4 (11.2-15.7) gm/dl Hct 46.2 H (34.1-44.9) % MCV 96.7 H (79.4-94.8) fl MCH 32.2 (25.6-32.2) pg MCHC 33.3 (32.2-35.5) g/dl RDW Std Deviation 42.2 (36.4-46.3) fL Plt Count 205 D (182-369) K/mm3 MPV 9.4 (9.4-12.3) fl Neut % (Auto) 68.5 (34.0-71.1) % Lymph % (Auto) 16.6 L (19.3-51.7) % [place] % (Auto) 11.7 (4.7-12.5) % Eos % (Auto) 2.5 (0.7-5.8) Baso % (Auto) 0.5 (0.1-1.2) % Neut # (Auto) 4.03 (1.56-6.13) K/mm3 Lymph # (Auto) 0.98 L (1.18-3.74) K/mm3 [place] # (Auto) 0.69 H (0.24-0.36) K/mm3 Eos # (Auto) 0.15 (0.04-0.36) K/mm3 Baso # (Auto) 0.03 (0.01-0.08) K/mm3 PT (9.7-12.0) SECONDS INR APTT (21.7-31.4) SECONDS Sodium 144 (136-145) mEq/L Potassium 4.0 (3.5-5.1) mEq/L Chloride 106 (98-107) mEq/L Carbon Dioxide 30 (21-32) mEq/L Anion Gap 12.0 (5-15) BUN 16 (7-18) mg/dL Creatinine 1.0 (0.55-1.02) mg/dL Est Cr Clr Drug Dosing TNP Estimated GFR (MDRD) 52 (>60) mL/min BUN/Creatinine Ratio 16.0 (14-18) Glucose 124 H (83-115) mg/dL Calcium 8.8 (8.5-10.1) mg/dL Magnesium 2.0 (1.8-2.4) mg/dl Total Bilirubin 0.6 (0.2-1.0) mg/dL AST 30 (15-37) U/L ALT 24 (14-59) U/L Alkaline Phosphatase 77 (46-116) U/L Troponin I < 0.017 (0.00-0.056) ng/mL Total Protein 6.5 (6.4-8.2) g/dl Albumin 3.3 L (3.4-5.0) g/dl Globulin 3.2 gm/dL Albumin/Globulin Ratio 1.0 (1-2) 03/15/20 Range/Units 09:40 WBC (3.98-10.04) K/mm3 RBC (3.98-5.22) M/mm3 Hgb (11.2-15.7) gm/dl Hct (34.1-44.9) % MCV (79.4-94.8) fl MCH (25.6-32.2) pg MCHC (32.2-35.5) g/dl RDW Std Deviation (36.4-46.3) fL Plt Count (182-369) K/mm3 MPV (9.4-12.3) fl Neut % (Auto) (34.0-71.1) % Lymph % (Auto) (19.3-51.7) % [place] % (Auto) (4.7-12.5) % Eos % (Auto) (0.7-5.8) Baso % (Auto) (0.1-1.2) % Neut # (Auto) (1.56-6.13) K/mm3 Lymph # (Auto) (1.18-3.74) K/mm3 [place] # (Auto) (0.24-0.36) K/mm3 Eos # (Auto) (0.04-0.36) K/mm3 Baso # (Auto) (0.01-0.08) K/mm3 PT 11.5 (9.7-12.0) SECONDS INR 1.08 APTT 27.4 (21.7-31.4) SECONDS Sodium (136-145) mEq/L Potassium (3.5-5.1) mEq/L Chloride (98-107) mEq/L Carbon Dioxide (21-32) mEq/L Anion Gap (5-15) BUN (7-18) mg/dL Creatinine (0.55-1.02) mg/dL Est Cr Clr Drug Dosing Estimated GFR (MDRD) (>60) mL/min BUN/Creatinine Ratio (14-18) Glucose (83-115) mg/dL Calcium (8.5-10.1) mg/dL Magnesium (1.8-2.4) mg/dl Total Bilirubin (0.2-1.0) mg/dL AST (15-37) U/L ALT (14-59) U/L Alkaline Phosphatase (46-116) U/L Troponin I (0.00-0.056) ng/mL Total Protein (6.4-8.2) g/dl Albumin (3.4-5.0) g/dl Globulin gm/dL Albumin/Globulin Ratio (1-2) - Re-Assessments/Exams Free Text/Narrative Re-Assessment/Exam: 03/15/20 13:09 Early on in the patient's stay she was noticed on telemetry to have these episodes where she would develop occasional PVCs sometimes frequent extremities PACs were followed by pauses and then she would develop junctional bradycardia sometimes as low as 25-30 she was symptomatic with these. And then it would spontaneously convert back to a sinus rhythm. We are waiting for labs that were unremarkable no electrolyte abnormalities or other issues. Case was discussed with Dr. Lynch, watch repairer at [facility] in [place] who agrees that the patient should be evaluated for pacemaker placement. Case was then discussed with the hospitalist Dr. Hernandez. She was kind enough to accept the patient in transfer and [id number] time. I discussed situation with the patient's daughter and the patient detail and they are both in agreement to the patient going to [place]. Departure - Departure Time of Disposition: 13:13 Disposition: DC/Tfer to Acute Hospital 02 Clinical Impression: Sick sinus syndrome, Symptomatic bradycardia - Discharge Information Referrals: Dominic Cano MD [Primary Care Provider] - Forms: ED Department Discharge Sepsis Event Note (ED) - Evaluation Sepsis Screening Result: No Definite Risk - Focused Exam Vital Signs: Vital Signs Temp Pulse Resp BP Pulse Ox 03/15/20 08:20 36.6 C 59 L 16 164/72 H 97 - My Orders Last 24 Hours: My Active Orders 03/15/20 08:37 EKG 12 Lead [EKG Documentation Completion] [RC] STAT 03/15/20 12:18 CORONAVIRUS COVID-19 DIANA [MOLEC] Stat - Assessment/Plan Last 24 Hours: My Active Orders 03/15/20 08:37 EKG 12 Lead [EKG Documentation Completion] [RC] STAT 03/15/20 12:18 CORONAVIRUS COVID-19 DIANA [MOLEC] Stat
--- NOTE | 2020-03-15 10:53 | CR ---
Chest: Portable view of the chest was obtained. Comparison: Prior chest x-ray of 07/11/18. Heart is enlarged. Tortuous thoracic aorta is seen. Lungs show no acute parenchymal change. Scattered degenerative change within the spine and shoulders are seen. Scoliosis is noted within the spine. Impression: 1. Findings as noted above. 2. Nothing acute is appreciated. Diagnostic code #2
== END 2020-03-15 13:48 ==
LOC: JD.ED 07:56
DX: I49.5 Sick sinus syndrome (principal); Z91.013 Allergy to seafood; Z20.828 Contact with and (suspected) exposure to other viral communicable diseases
CPT/HCPCS: 36415; 71045; 80053; 83735; 84484; 85025; 85610; 85730; 93005; 99285; U0002; 93010; 99284

== ENCOUNTER 2020-03-28 20:14 | Emergency (ER) | payer MEDICARE, OTHER ==
--- NOTE | 2020-03-28 20:32 | EDM.PDOC ---
ED HPI GENERAL MEDICAL PROBLEM - General Chief Complaint: Neuro Symptoms/Deficits Stated Complaint: STROKE SYMPTOMS Time Seen by Provider: 03/28/20 20:15 Source of Information: Reports: Family (Granddaughter) - History of Present Illness INITIAL COMMENTS - FREE TEXT/NARRATIVE: Mrs. Keita is a very pleasant 89 year woman with a past medical history significant for paroxysmal atrial fibrillation, on Eliquis, and sick sinus syndrome, status post pacemaker placement 03/17/2020, who is now brought to the ED by her granddaughter, who tells me that the patient apparently felt poorly last evening, then was found to have difficulty grasping a spoon around 16:00 this afternoon. She had some word-finding difficulty and slurred speech around 19:45, prompting her to be brought to the ED. Her last known normal was probably around 08:00, when she had no slurred speech on a phone conversation. Here in the ED, the patient's initial BP is found to be elevated at 175/82, otherwise, she is hemodynamically stable, afebrile, saturating 94% on room air. The patient denies having a headache. Prior to last evening, the patient denies having a recent fever, chills, sore throat, ear pain, nasal or sinus congestion, cough, dyspnea, chest pain, palpitations, nausea, vomiting, constipation, diarrhea, abdominal pain, urinary symptoms, recent weight gain or weight loss, recent bloody bowel movements or black bowel movements, recent joint aches, headaches, or rashes. The patient's PCP is Dr. Dominic Cano. Her Locomotive Crane Operator is Dr. Ras Valentine. She already received an influenza vaccine this season. - Related Data Allergies Allergy/AdvReac Type Severity Reaction Status Date / Time shellfish derived Allergy Swelling Verified 03/15/20 08:23 Home Meds: Home Meds Cholecalciferol (Vitamin D3) [Vitamin D3] 2,000 units PO DAILY 07/11/18 [History] Fish Oil/Borage/Flax/Om3,6,9 1 [Triple Iraan Complex 3-6-9] 3,000 mg PO DAILY 07/11/18 [History] Glucosamine [Glucosamine Sulfate] 3 tab PO DAILY 07/11/18 [History] Lidocaine 5% [Lidoderm 5%] 1 patch TOP DAILY 07/14/18 [History] Amoxicillin/Potassium Clav [Augmentin 875-125 Tablet] 1 each PO BID #10 tablet 07/15/18 [Rx] Apixaban [Eliquis] 2.5 mg PO BID #60 tablet 07/15/18 [Rx] Azithromycin [Zithromax] 250 mg PO DAILY@1400 #2 tablet 07/15/18 [Rx] Metoprolol Succinate [Toprol XL 50mg] 50 mg PO BEDTIME #30 tab.er 07/15/18 [Rx] Metoprolol Succinate [Toprol XL] 25 mg PO DAILY #30 tab.er 07/15/18 [Rx] guaiFENesin [Mucinex] 600 mg PO BID #30 tab.er 07/15/18 [Rx] Past Medical History HEENT History: Reports: Impaired Vision (wears glasses) Cardiovascular History: Reports: Afib (paroxysmal), Arrhythmia (SSS, s/p pacer) Musculoskeletal History: Reports: Other (See Below) (Thoracolumbar scoliosis) Neurological History: Reports: Other (See Below) (Shingles neuropathy) - Infectious Disease History Infectious Disease History: Reports: Shingles - Past Surgical History HEENT Surgical History: Reports: Oral Surgery (dental extraction), Tonsillectomy Cardiovascular Surgical History: Reports: Pacer (03/17/2020) Social & Family History - Tobacco Use Tobacco Use Status *Q: Never Tobacco User - Caffeine Use Caffeine Use: Reports: None - Alcohol Use Alcohol Use History: No - Recreational Drug Use Recreational Drug Use: No - Living Situation & Occupation Living situation: Reports: , Alone Occupation: Retired ED ROS GENERAL - Review of Systems Review Of Systems: Comprehensive ROS is negative, except as noted in HPI. ED EXAM, NEURO - Physical Exam Exam: See Below Exam Limited By: No Limitations General Appearance: Alert, WD/WN, No Apparent Distress Eye Exam: Bilateral Eye: EOMI, Normal Inspection, PERRL Ears: Normal External Exam, Hearing Loss Nose: Normal Inspection Throat/Mouth: Normal Inspection, Normal Lips, Normal Teeth, Normal Voice, No Airway Compromise Head Exam: Atraumatic, Normocephalic Neck: Normal Inspection, Full Range of Motion Respiratory/Chest: No Respiratory Distress, Lungs Clear, Normal Breath Sounds, No Accessory Muscle Use Cardiovascular: Normal Peripheral Pulses, Regular Rate, Rhythm, No Edema, No Gallop, No JVD, No Rub, Systolic Murmur (heard best at apex, c/w MR) GI/Abdominal: Normal Bowel Sounds, Soft, Non-Tender, No Organomegaly, No Distention, No Abnormal Bruit, No Mass Neurological: Alert, Normal Dorsiflexion, CN II-XII Intact, Normal Plantar Flexion, No Motor/Sensory Deficits, Oriented x 3, Other (The patient's neurologic examination demonstrates generalized, non-focal weakness, but is otherwise unremarkable, however, she is unable to follow commands to hand flap, finger-nose, or heel-avila.) Back Exam: Normal Inspection, Full Range of Motion, NT Extremities: Normal Inspection, Normal Range of Motion, Normal Capillary Refill Psychiatric: Normal Affect Skin Exam: Warm, Dry, Intact, Normal Color, No Rash #1 Interpretation EKG Date: 03/28/20 Time: 20:28 Rhythm: Other (Atrially paced) Rate (Beats/Min): 68 Halsey: LAD-Left Halsey Deviation QRS: Normal ST-T: Normal QT: Normal Comparison: Change From Previous EKG (Was in NSR on 03/15/2020) Course - Vital Signs Last Recorded V/S: Last Vital Signs Temp 36.6 C 03/28/20 20:28 Pulse 65 03/28/20 20:28 Resp 16 03/28/20 20:28 BP 175/82 H 03/28/20 20:28 Pulse Ox 94 L 03/28/20 20:28 - Orders/Labs/Meds Orders: Active Orders 24 hr Category Date Time Status EKG Documentation Completion [RC] STAT Care 03/28/20 20:28 Active Chest 1V Frontal [CR] Stat Exams 03/28/20 20:27 Taken Head wo Cont [CT] Stat Exams 03/28/20 20:26 Taken Labs: Laboratory Tests 03/28/20 03/28/20 03/28/20 Range/Units 20:20 20:20 20:20 WBC 8.09 (3.98-10.04) K/mm3 RBC 4.78 (3.98-5.22) M/mm3 Hgb 15.4 (11.2-15.7) gm/dl Hct 45.5 H (34.1-44.9) % MCV 95.2 H (79.4-94.8) fl MCH 32.2 (25.6-32.2) pg MCHC 33.8 (32.2-35.5) g/dl RDW Std Deviation 41.5 (36.4-46.3) fL Plt Count 280 D (182-369) K/mm3 MPV 8.9 L (9.4-12.3) fl Neutrophils % (Manual) 74 H (40-60) % Band Neutrophils % 0 (0-10) % Lymphocytes % (Manual) 20 (20-40) % Atypical Lymphs % 1 % Monocytes % (Manual) 5 (2-10) % Eosinophils % (Manual) 0 L (0.7-5.8) % Basophils % (Manual) 0 L (0.1-1.2) Platelet Estimate Adequate RBC Morph Comment Normal Sodium 138 (136-145) mEq/L Potassium 4.2 (3.5-5.1) mEq/L Chloride 101 (98-107) mEq/L Carbon Dioxide 29 (21-32) mEq/L Anion Gap 12.2 (5-15) BUN 13 (7-18) mg/dL Creatinine 1.0 (0.55-1.02) mg/dL Est Cr Clr Drug Dosing 35.70 mL/min Estimated GFR (MDRD) 52 (>60) mL/min BUN/Creatinine Ratio 13.0 L (14-18) Glucose 94 (83-115) mg/dL POC Glucose 98 (83-110) mg/dL Calcium 9.4 (8.5-10.1) mg/dL Magnesium 2.1 (1.8-2.4) mg/dl Total Bilirubin 0.8 (0.2-1.0) mg/dL AST 50 H (15-37) U/L ALT 48 (14-59) U/L Alkaline Phosphatase 105 (46-116) U/L Troponin I 0.019 (0.00-0.056) ng/mL Total Protein 7.2 (6.4-8.2) g/dl Albumin 3.7 (3.4-5.0) g/dl Globulin 3.5 gm/dL Albumin/Globulin Ratio 1.1 (1-2) TSH 3rd Generation 4.085 H (0.358-3.74) uIU/mL Urine Color (Yellow) Urine Appearance (Clear) Urine pH (5.0-8.0) Ur Specific [place] (1.005-1.030) Urine Protein (Negative) Urine Glucose (UA) (Negative) Urine Ketones (Negative) Urine Occult Blood (Negative) Urine Nitrite (Negative) Urine Bilirubin (Negative) Urine Urobilinogen (0.2-1.0) Ur Leukocyte Esterase (Negative) Urine RBC (0-5) /hpf Urine WBC (0-5) /hpf Ur Squamous Epith Cells (0-5) /hpf Urine Bacteria (FEW) /hpf Urine Mucus (FEW) /hpf SARS-CoV-2 RNA (DIANA) (NEGATIVE) 03/28/20 03/28/20 Range/Units 21:20 21:20 WBC (3.98-10.04) K/mm3 RBC (3.98-5.22) M/mm3 Hgb (11.2-15.7) gm/dl Hct (34.1-44.9) % MCV (79.4-94.8) fl MCH (25.6-32.2) pg MCHC (32.2-35.5) g/dl RDW Std Deviation (36.4-46.3) fL Plt Count (182-369) K/mm3 MPV (9.4-12.3) fl Neutrophils % (Manual) (40-60) % Band Neutrophils % (0-10) % Lymphocytes % (Manual) (20-40) % Atypical Lymphs % % Monocytes % (Manual) (2-10) % Eosinophils % (Manual) (0.7-5.8) % Basophils % (Manual) (0.1-1.2) Platelet Estimate RBC Morph Comment Sodium (136-145) mEq/L Potassium (3.5-5.1) mEq/L Chloride (98-107) mEq/L Carbon Dioxide (21-32) mEq/L Anion Gap (5-15) BUN (7-18) mg/dL Creatinine (0.55-1.02) mg/dL Est Cr Clr Drug Dosing mL/min Estimated GFR (MDRD) (>60) mL/min BUN/Creatinine Ratio (14-18) Glucose (83-115) mg/dL POC Glucose (83-110) mg/dL Calcium (8.5-10.1) mg/dL Magnesium (1.8-2.4) mg/dl Total Bilirubin (0.2-1.0) mg/dL AST (15-37) U/L ALT (14-59) U/L Alkaline Phosphatase (46-116) U/L Troponin I (0.00-0.056) ng/mL Total Protein (6.4-8.2) g/dl Albumin (3.4-5.0) g/dl Globulin gm/dL Albumin/Globulin Ratio (1-2) TSH 3rd Generation (0.358-3.74) uIU/mL Urine Color Yellow (Yellow) Urine Appearance Clear (Clear) Urine pH 6.5 (5.0-8.0) Ur Specific [place] 1.020 (1.005-1.030) Urine Protein Negative (Negative) Urine Glucose (UA) Negative (Negative) Urine Ketones Negative (Negative) Urine Occult Blood Trace-lysed H (Negative) Urine Nitrite Negative (Negative) Urine Bilirubin Negative (Negative) Urine Urobilinogen 0.2 (0.2-1.0) Ur Leukocyte Esterase Negative (Negative) Urine RBC 5-10 H (0-5) /hpf Urine WBC 0-5 (0-5) /hpf Ur Squamous Epith Cells 5-10 H (0-5) /hpf Urine Bacteria Few (FEW) /hpf Urine Mucus Moderate H (FEW) /hpf SARS-CoV-2 RNA (DIANA) Negative (NEGATIVE) - Re-Assessments/Exams Free Text/Narrative Re-Assessment/Exam: 03/28/20 20:29 As above, the patient felt poorly last evening, had some difficulty grasping a s aravind around 16:00 although her speech was reportedly fluid at that time, then was found to have word finding difficulty with slurred speech around 19:45 this evening, prompting her to be brought to the ED. Here in the ED, an ECG indicates atrial pacing at 68 bpm. Her neurologic examination is grossly normal, finding only generalized weakness, however, she is unable to follow hand flap, finger-nose, or heel-avila instructions. That appears to be a cognitive issue, not a cerebellar one, however, her granddaughter tells me that the patient does not have any cognitive issues, such as dementia. I have ordered a stat CT of the head to evaluate, along with several blood tests, a urinalysis by quick-catheter, a portable chest x-ray, and, in case she needs to be admitted or transferred, a swab for the SARS-CoV-2 virus. 03/28/20 21:00 CT of the head without contrast is read by [facility] as: 1. Negative head CT. 2. [place] Stroke Program Early CT Score (ASPECTS) = 10. 03/28/20 21:56 Portable chest radiograph reviewed. There is cardiomegaly, although no pulmonary vascular congestion or pleural effusions to suggest decompensated CHF. No focal infiltrate. No pneumothorax. There is hyperinflation and bilateral diaphragmatic flattening, consistent with COPD. There is thoracolumbar scoliosis. The 2-chamber left-sided pacemaker is noted. Formal read per the Radiologist pending. The patient's CBC is remarkable for a Hct slightly elevated at 45.5, with a Hgb normal at 15.4, with the remainder of her CBC being unremarkable. Her CMP is remarkable for an AST slightly elevated at 50, with an ALT normal at 48, and the remainder of her CMP being unremarkable. Her magnesium level is within normal limits at 2.1. Her TSH is mildly elevated at 4.089. Her troponin is within normal limits at 0.019. Her urinalysis is remarkable for trace occult blood with 5-10 RBCs, leukocyte esterase negative with 0-5 WBCs, nitrate negative with few bacteria, and 5-10 squamous epithelial cells. Result of her swab for the SARS-CoV-2 virus is still pending. 03/28/20 22:21 The patient's swab for the SARS-CoV-2 virus has returned negative. 03/28/20 22:39 Case discussed with Eladio at [facility] at 22:17. Case then discussed with Dr. Cesar Soria, Neurologist on-call at [facility], at 22:32. He feels that the patient likely suffered a stroke despite being on Eliquis. She is not a candidate for a thrombolytic, and he recommended that we keep her on the Eliquis, to prevent her from having an even larger stroke. He inquired whether or not the patient's pacemaker is MRI-compatible, which I do not know. He therefore recommended that we transfer the patient to the Hospitalist service so that she can undergo an MRI with Cardiology in attendance, likely tomorrow. She will also need speech therapy/occupational therapy. Notified by Eladio that the Hospitalist is currently busy. They will call us back when she is available. 03/28/20 22:[address] Rocha, Hospitalist at [facility], at 22:53. She accepted the patient for admission to their facility. 03/28/20 22:59 The patient's granddaughter would like to physically take the patient to [facility]. 03/28/20 23:02 I have pushed both the portable chest x-ray and CT/head images to [facility]. Departure - Departure Time of Disposition: 22:56 Disposition: DC/Tfer to Acute Hospital 02 Condition: Good Clinical Impression: Abnormal neurological findings - Discharge Information *PRESCRIPTION DRUG MONITORING PROGRAM REVIEWED*: Not Applicable *COPY OF PRESCRIPTION DRUG MONITORING REPORT IN PATIENT PAULETTE: Not Applicable Referrals: Dominic Cano MD [Primary Care Provider] - Ras Valentine DO [Ordering Only Provider] - Forms: ED Department Discharge Sepsis Event Note (ED) - Focused Exam Vital Signs: Vital Signs Temp Pulse Resp BP Pulse Ox 03/28/20 20:28 36.6 C 65 16 175/82 H 94 L - My Orders Last 24 Hours: My Active Orders 03/28/20 20:26 Head wo Cont [CT] Stat 03/28/20 20:27 Chest 1V Frontal [CR] Stat 03/28/20 20:28 EKG Documentation Completion [RC] STAT - Assessment/Plan Last 24 Hours: My Active Orders 03/28/20 20:26 Head wo Cont [CT] Stat 03/28/20 20:27 Chest 1V Frontal [CR] Stat 03/28/20 20:28 EKG Documentation Completion [RC] STAT
--- NOTE | 2020-03-29 09:59 | CR ---
Chest: Portable view of the chest was obtained. Comparison: Prior chest x-ray of 03/15/20. Heart is enlarged. Tortuous thoracic aorta is seen. Mild chamber pacemaker is present. Lungs are clear with no acute parenchymal change. Bony structures are grossly intact. Slight scoliosis is noted. Slight degenerative change is noted within the shoulders and within the spine. Impression: 1. Findings as noted above. 2. Nothing acute is appreciated. Diagnostic code #2
--- NOTE | 2020-03-29 09:59 | CT ---
Head CT Technique: Multiple axial sections through the brain were obtained. Intravenous contrast was not utilized. Reconstructed coronal and sagittal images were also obtained. Findings: Ventricles along with basal cisterns and sulci over the convexities are mildly prominent. Mild areas of diminished density are noted within the periventricular white matter which most likely represent small vessel ischemic demyelination change. No evidence of intracranial hemorrhage. No midline shift or mass-effect is appreciated. Visualized mastoid sinuses and paranasal sinuses show nothing acute. No acute calvarial abnormality is appreciated. Impression: 1. Slight senescent change. 2. No acute intracranial abnormality is appreciated. Diagnostic code #2 I agree with preliminary report from [facility], finalized on 03/28/20, 9:55 PM PRODUCT REPRESENTATIVE
== END 2020-03-28 23:30 ==
LOC: JD.ED 20:14
DX: R29.818 Other symptoms and signs involving the nervous system (principal); I48.91 Unspecified atrial fibrillation; Z79.01 Long term (current) use of anticoagulants; Z91.013 Allergy to seafood; Z79.899 Other long term (current) drug therapy; Z20.822 Contact with and (suspected) exposure to COVID-19
CPT/HCPCS: 36415; 70450; 71045; 80053; 81001; 82962; 83735; 84443; 84484; 85007; 85027; 93005; 99285; U0002; 93010